=== PATIENT | male | born 1950 | race Caucasian/White ===

== ENCOUNTER 2020-09-08 09:19 | Inpatient (IN) | payer BC ==
--- NOTE | 2020-09-08 09:46 | ED ---
General Adult HPI - General Chief complaint: Shortness of Breath Stated complaint: COVID+,Not feeling well Time Seen by Provider: 09/08/20 09:20 Source: EMS Mode of arrival: EMS Limitations: no limitations - History of Present Illness Initial comments: Dictation was produced using [employer] dictation software. please excuse any grammatical, word or spelling errors. This patient was cared for during a federal and state declared state of emergency secondary to Covid 19 Chief Complaint: 69-year-old male with: Presents to the emergency department from [facility] for the difficulty in breathing. History of Present Illness: This 69-year-old male he does not have a history of home O2, asthma or COPD. Patient was a resident at [facility] when he tested positive for rotavirus 5 days ago. He was transferred to [facility]. Patient was placed on oxygen for hypoxia while at [facility]. Yesterday he was noted to be short of breath. Patient did receive his coronavirus vaccines. States he feels achy. Does have mild fevers. Denies any chest pain or abdominal pain. He does feel mildly dyspneic. The ROS documented in this emergency department record has been reviewed and confirmed by me. Those systems with pertinent positive or negative responses have been documented in the HPI. All other systems are other negative and/or noncontributory. PHYSICAL EXAM: General Impression: Alert and oriented x3, not in acute distress HEENT: Normocephalic atraumatic, extra-ocular movements intact, pupils equal and reactive to light bilaterally, mucous membranes moist. Cardiovascular: Heart regular rate and rhythm Chest: Able to complete full sentences, no retractions, no tachypnea Abdomen: abdomen soft, non-tender, non-distended, no organomegaly Musculoskeletal: Pulses present and equal in all extremities, no peripheral edema Motor: no focal deficits noted Neurological: CN II-XII grossly intact, no focal motor or sensory deficits noted Skin: Intact with no visualized rashes Psych: Normal affect and mood ED course: 69-year-old male presents with Covid and shortness of breath. All signs upon arrival shows 94% on 4 L nasal cannula, rest of vital signs within acceptable limits. Laboratory evaluation obtained. CBC remarkable. Coag panel is negative. D- dimer is elevated 1.14. Metabolic panel shows findings within acceptable limits. Chest x-ray shows findings to suggest COVID-19. D-dimer was elevated triggered CT of the chest. CT of the chest showed no pulmonary embolus. Patient is on minimal supplemental oxygen is given Decadron. Patient will be admitted with consultation to pulmonology. EKG interpretation: Ventricular rate 60, sinus rhythm,. Interval to 2, QRS 94, QTC 427. No CO prolongation, no QTC prolongation, no ST or T-wave changes noted. . Overall, this EKG is nonspecific - Related Data Home Medications Medication Instructions Recorded Confirmed Acetaminophen Tab [Tylenol] 650 mg PO Q4H PRN 09/08/20 09/08/20 Albuterol Sulfate [Proventil Hfa] 2 puff INHALATION RT-QID 09/08/20 09/08/20 Allopurinol [Zyloprim] 300 mg PO HS@209909/08/20 09/08/20 Citalopram Hydrobromide [CeleXA] 20 mg PO DAILY@0909/08/20 09/08/20 Cyclobenzaprine [Flexeril] 5 mg PO Q6H PRN 09/08/20 09/08/20 Doxazosin [Cardura] 4 mg PO BID@0900,1700 09/08/20 09/08/20 Furosemide [Lasix] 10 mg PO DAILY@0909/08/20 09/08/20 Gabapentin [Neurontin] 300 mg PO TID@0900,1300,209909/08/20 09/08/20 HYDROcodone/APAP 10-325MG [[place] 1 tab PO Q4H PRN 09/08/20 09/08/20 10-325] Insulin Glargine,Hum.rec.anlog 10 units SQ DAILY@0900 09/08/20 09/08/20 [Semglee Pen] Insulin Lispro [humaLOG Kwikpen] See Protocol SQ ACHS 09/08/20 09/08/20 Losartan [Cozaar] 50 mg PO DAILY@0909/08/20 09/08/20 Metoprolol Tartrate [Lopressor] 50 mg PO HS@209909/08/20 09/08/20 Sodium Chloride [Saline Nasal 1 spray EA NOSTRIL BID@0900,209909/08/20 09/08/20 [place]] Zolpidem [Ambien] 10 mg PO HS PRN 09/08/20 09/08/20 amLODIPine [Norvasc] 10 mg PO HS 09/08/20 09/08/20 metFORMIN HCL [Glucophage] 1,000 mg PO BID@0900,1700 09/08/20 09/08/20 Allergies Allergy/AdvReac Type Severity Reaction Status Date / Time adhesive Allergy Unknown Verified 09/08/20 09:30 cephalexin [From Keflex] Allergy Unknown Verified 09/08/20 09:30 lemon Allergy Unknown Verified 09/08/20 09:30 Review of Systems ROS Statement: Those systems with pertinent positive or pertinent negative responses have been documented in the HPI. ROS Other: All systems not noted in ROS Statement are negative. Past Medical History Past Medical History: Unable to Obtain History of Any Multi-Drug Resistant Organisms: None Reported Past Surgical History: Unable to Obtain Past Psychological History: No Psychological Hx Reported Smoking Status: Never smoker Past Alcohol Use History: None Reported Past Drug Use History: None Reported General Exam Limitations: no limitations Course Vital Signs 09/08/20 09/08/20 09/08/20 09:23 09:28 10:18 Temperature 98.3 F Pulse Rate 68 63 Respiratory 16 16 16 Rate Blood Pressure 129/80 124/69 O2 Sat by Pulse 94 L 89 L Oximetry 09/08/20 09/08/20 09/08/20 10:20 11:31 12:27 Temperature 98.6 F Pulse Rate 56 L 65 Respiratory 22 20 Rate Blood Pressure 127/67 O2 Sat by Pulse 92 L 95 93 L Oximetry Medical Decision Making - Lab Data Result diagrams: 09/08/20 09:45 09/08/20 09:45 Lab Results 09/08/20 09/08/20 09/08/20 Range/Units 09:45 09:45 09:45 WBC 4.7 (3.8-10.6) k/uL RBC 3.77 L (4.30-5.90) m/uL Hgb 10.8 L (13.0-17.5) gm/dL Hct 31.4 L (39.0-53.0) % MCV 83.2 (80.0-100.0) fL MCH 28.6 (25.0-35.0) pg MCHC 34.4 (31.0-37.0) g/dL RDW 15.1 (11.5-15.5) % Plt Count 238 (150-450) k/uL MPV 7.0 Neutrophils % 54 % Lymphocytes % 29 % Monocytes % 9 % Eosinophils % 6 % Basophils % 1 % Neutrophils # 2.5 (1.3-7.7) k/uL Lymphocytes # 1.3 (1.0-4.8) k/uL Monocytes # 0.4 (0-1.0) k/uL Eosinophils # 0.3 (0-0.7) k/uL Basophils # 0.0 (0-0.2) k/uL Poikilocytosis Slight PT 9.8 (9.0-12.0) sec INR 0.9 (<1.2) APTT 27.1 (22.0-30.0) sec D-Dimer 1.14 H (<0.60) mg/L FEU Sodium 137 (137-145) mmol/L Potassium 4.6 (3.5-5.1) mmol/L Chloride 104 (98-107) mmol/L Carbon Dioxide 23 (22-30) mmol/L Anion Gap 10 mmol/L BUN 31 H (9-20) mg/dL Creatinine 1.15 (0.66-1.25) mg/dL Est GFR (CKD-EPI)AfAm 76 (>60 ml/min/1.73 sqM) Est GFR (CKD-EPI)NonAf 66 (>60 ml/min/1.73 sqM) Glucose 138 H (74-99) mg/dL Calcium 8.9 (8.4-10.2) mg/dL Troponin I (0.000-0.034) ng/mL C-Reactive Protein 19.8 H (<1.0) mg/dL 09/08/20 Range/Units 09:45 WBC (3.8-10.6) k/uL RBC (4.30-5.90) m/uL Hgb (13.0-17.5) gm/dL Hct (39.0-53.0) % MCV (80.0-100.0) fL MCH (25.0-35.0) pg MCHC (31.0-37.0) g/dL RDW (11.5-15.5) % Plt Count (150-450) k/uL MPV Neutrophils % % Lymphocytes % % Monocytes % % Eosinophils % % Basophils % % Neutrophils # (1.3-7.7) k/uL Lymphocytes # (1.0-4.8) k/uL Monocytes # (0-1.0) k/uL Eosinophils # (0-0.7) k/uL Basophils # (0-0.2) k/uL Poikilocytosis PT (9.0-12.0) sec INR (<1.2) APTT (22.0-30.0) sec D-Dimer (<0.60) mg/L FEU Sodium (137-145) mmol/L Potassium (3.5-5.1) mmol/L Chloride (98-107) mmol/L Carbon Dioxide (22-30) mmol/L Anion Gap mmol/L BUN (9-20) mg/dL Creatinine (0.66-1.25) mg/dL Est GFR (CKD-EPI)AfAm (>60 ml/min/1.73 sqM) Est GFR (CKD-EPI)NonAf (>60 ml/min/1.73 sqM) Glucose (74-99) mg/dL Calcium (8.4-10.2) mg/dL Troponin I <0.012 (0.000-0.034) ng/mL C-Reactive Protein (<1.0) mg/dL Disposition Clinical Impression: COVID-19 Disposition: ADMITTED IP TO THIS HOSP Condition: Fair Referrals: Linda Dave MD [Primary Care Provider] - 1-2 days
[2020-09-08 10:10] LABS: Basophils % (A) 1 %; Eosinophils # (A) 0.3 k/uL (0-0.7); Eosinophils % (A) 6 %; HCT 31.4 % (39.0-53.0); HGB 10.8 gm/dL (13.0-17.5); Lymphocytes # (A) 1.3 k/uL (1.0-4.8); Lymphocytes % (A) 29 %; MCH 28.6 pg (25.0-35.0); MCHC 34.4 g/dL (31.0-37.0); MCV 83.2 fL (80.0-100.0); Monocytes # (A) 0.4 k/uL (0-1.0); Monocytes % (A) 9 %; Neutrophils # (A) 2.5 k/uL (1.3-7.7); Neutrophils % (A) 54 %; Platelet Count 238 k/uL (150-450); Poikilocytosis Slight; RBC 3.77 m/uL (4.30-5.90); RDW 15.1 % (11.5-15.5); WBC 4.7 k/uL (3.8-10.6)
[2020-09-08 10:27] LABS: INR 0.9 (<1.2); Partial Thromboplastin Time 27.1 sec (22.0-30.0); Prothrombin Time 9.8 sec (9.0-12.0)
[2020-09-08 10:29] LABS: Calcium 8.9 mg/dL (8.4-10.2); Potassium 4.6 mmol/L (3.5-5.1)
[2020-09-08 10:44] LABS: C Reactive Protein 19.8 mg/dL (<1.0)
--- NOTE | 2020-09-08 10:46 | XR ---
EXAMINATION TYPE: XR chest 1V portable DATE OF EXAM: 09/08/2020 COMPARISON: NONE HISTORY: Covid TECHNIQUE: Single frontal view of the chest is obtained. FINDINGS: There is bilateral airspace disease. No pneumothorax or pleural effusion. Cardiac mediasti nal silhouette is within normal limits. Overlying leads. IMPRESSION: Findings consistent with Covid pneumonia.
[2020-09-08 10:51] LABS: D-Dimer 1.14 mg/L FEU (<0.60)
[2020-09-08] MEDS ORDERED: DEXAMETHASONE SOD PHOSPHATE 10 MG/ML 1 ML VIAL IV STA (12:24)
--- NOTE | 2020-09-08 12:35 | CT ---
EXAMINATION TYPE: CT angio chest DATE OF EXAM: 09/08/2020 12:29 PM COMPARISON: Same day chest x-ray. HISTORY: Covid, Elev. D dimer, hemoptysis. CT DLP: 917.6 mGycm Automated exposure control for dose reduction was used. CONTRAST: CTA scan of the thorax is performed with IV Contrast, patient injected with 100 mL of Isovue 370, pul monary embolism protocol. MIP images are created and reviewed. FINDINGS: LUNGS: Bilateral multifocal groundglass opacities with areas of organizing consolidation are present. Small bilateral pleural effusions. No pneumothorax seen bilaterally. MEDIASTINUM: There is suboptimal bolus with most dense contrast in SVC. No thoracic aortic aneurysm or dissection is present. There is no convincing CT evidence for acute pulmonary embolism. There are scattered prominent and some enlarged mediastinal and bilateral hilar lymph nodes. No cardiomegaly or pericardial effusion is seen. OTHER: Mild multilevel spurring in thoracic spine. IMPRESSION: No CT evidence for acute pulmonary embolism. Bilateral multifocal groundglass opacities a nd organizing consolidation with thoracic adenopathy consistent with covid-19 infection.
[2020-09-08] MEDS ORDERED: ACETAMINOPHEN TAB 325 MG TAB PO PRN ×2 (12:41→20:29)
[2020-09-08] MEDS ORDERED: NALOXONE 0.4 MG/ML 1 ML VIAL IV PRN (12:41)
[2020-09-08] MEDS: SODIUM CHLORIDE 0.9% 1,000 ML IV SCH (12:59)
[2020-09-08] MEDS ORDERED: AZITHROMYCIN 500 MG in SODIUM CHLORIDE 0.9% 250 ML IVPB STA (13:17)
[2020-09-08 16:50] LABS: Glucose,Whole Blood 190 mg/dL (75-99)
[2020-09-08 20:35] LABS: Glucose,Whole Blood 252 mg/dL (75-99)
[2020-09-08] MEDS: INSULIN ASPART (NovoLOG) 100 UNIT/ML VIAL SQ SCH (21:57)
[2020-09-08] MEDS: METOPROLOL TARTRATE 50 MG TAB PO SCH (21:58)
[2020-09-08] MEDS: HYDROcodone/APAP 10-325MG 1 EACH TAB PO PRN (21:58)
[2020-09-08] MEDS: DEXAMETHASONE SOD PHOSPHATE 10 MG/ML 1 ML VIAL IV SCH (21:58)
[2020-09-08] MEDS: amLODIPine 10 MG TAB PO SCH (21:59)
[2020-09-08] MEDS: allopurinoL 300 MG TAB PO SCH (21:59)
[2020-09-08] MEDS: GABAPENTIN 300 MG CAP PO SCH (21:59)
[2020-09-08] MEDS: ZOLPIDEM 10 MG TAB PO PRN (21:59)
[2020-09-09] MEDS: HYDROcodone/APAP 10-325MG 1 EACH TAB PO PRN ×4 (05:21→22:34)
[2020-09-09 06:57] LABS: Glucose,Whole Blood 223 mg/dL (75-99)
[2020-09-09] MEDS: CITALOPRAM HYDROBROMIDE 20 MG TAB PO SCH (08:10)
[2020-09-09] MEDS: GABAPENTIN 300 MG CAP PO SCH ×3 (08:10→20:29)
[2020-09-09] MEDS: DEXAMETHASONE SOD PHOSPHATE 10 MG/ML 1 ML VIAL IV SCH ×2 (08:10→08:16)
[2020-09-09] MEDS: DOXAZOSIN 4 MG TAB PO SCH ×2 (08:10→19:12)
[2020-09-09] MEDS: LOSARTAN 50 MG TAB PO SCH (08:10)
[2020-09-09] MEDS: INSULIN ASPART (NovoLOG) 100 UNIT/ML VIAL SQ SCH ×4 (08:17→20:56)
[2020-09-09] MEDS ORDERED: AZITHROMYCIN 500 MG TAB PO SCH (09:00)
[2020-09-09] MEDS: ALBUTEROL HFA INHALER INHALATION SCH ×4 (09:04→19:41)
[2020-09-09] MEDS ORDERED: REMDESIVIR 100 MG in SODIUM CHLORIDE 0.9% 250 ML IVPB SCH (10:00)
[2020-09-09] MEDS: FUROSEMIDE 10 MG TAB PO SCH (10:17)
[2020-09-09] MEDS ORDERED: REMDESIVIR 200 MG in SODIUM CHLORIDE 0.9% 250 ML IVPB ONE (10:30)
[2020-09-09 11:01] LABS: HCT 32.1 % (39.6-50.0); HGB 10.3 g/dL (13.0-17.0); MCH 27.4 pg (27.0-32.0); MCHC 32.1 g/dL (32.0-37.0); MCV 85.4 fL (80.0-97.0); Mean Platelet Volume 9.3 fL (9.5-12.2); Platelet Count 296 X 10*3/uL (140-440); RBC 3.76 X 10*6/uL (4.40-5.60); RDW 14.5 % (11.5-14.5); WBC 4.14 X 10*3/uL (4.50-10.00)
[2020-09-09 11:36] LABS: Glucose,Whole Blood 231 mg/dL (75-99)
[2020-09-09 11:51] LABS: Basophils # (A) 0.01 X 10*3/uL (0.00-0.10); Basophils % (A) 0.2 %; Eosinophils # (A) 0.01 X 10*3/uL (0.04-0.35); Eosinophils % (A) 0.2 %; Lymphocytes # (A) 0.92 X 10*3/uL (0.90-5.00); Lymphocytes % (A) 22.2 %; Monocytes # (A) 0.28 X 10*3/uL (0.20-1.00); Monocytes % (A) 6.8 %; Neutrophils # (A) 2.77 X 10*3/uL (1.80-7.70)
[2020-09-09 11:55] LABS: African American GFR (CKD) 89.2 (60.0-200.0); Albumin 3.7 g/dL (3.80-4.90); Albumin/Globulin Ratio 1.54 (1.60-3.17); C Reactive Protein 10.8 mg/dL (0.0-0.8); Calcium 8.8 mg/dL (8.7-10.3); Globulin 2.4 g/dL (1.6-3.3); Potassium 4.9 mmol/L (3.5-5.5); Total Bilirubin 0.6 mg/dL (0.3-1.2); Total Protein 6.1 g/dL (6.2-8.2)
--- NOTE | 2020-09-09 12:10 | P.HPIM ---
History of Present Illness H&P Date: 09/09/20 Chief Complaint: Hemoptysis HISTORY OF PRESENT ILLNESS This is a 69-year-old male patient of Dr. Dave at [facility] with past medical history of asthma, diabetes mellitus type 2, diabetic neuropathy, hypertension, hyperlipidemia, chronic lumbar pain under the care of pain management in [facility]. Patient gives history that for 5-6 weeks he has had hemoptysis. He was previously at [facility] in [place]. Patient apparently developed symptoms of Covid and on September 01 was tested and came back positive. Patient states that all the residents became positive and the facility was shut down and he was transferred to [facility] for rehab. Patient complains of cough, no fever or chills. He states he had workup done at [facility] in [facility] on September 05 and at that time was also started on steroids for back pain. He has been spitting up blood since that time. He also has history of asthma. He denies use of home oxygen, nebulizers or CPAP. Patient presented to [facility] emergency center for evaluation and found to have pulse ox is 94% on 4 L nasal cannula, afebrile, heart rate 68, blood pressure 129/80. EKG sinus rhythm. WBC 4.7, hemoglobin 10.8, platelet count 238. Electrolytes were all normal, BUN 31 creatinine 1.15. Blood sugar 138. D-dimer 1.14. C-reactive protein 19.8. Troponin negative. Chest x-ray consistent with Covid [address] angiogram of the chest revealed no pulmonary embolism. Bilateral multifocal groundglass opacities and organizing consolidations with thoracic adenopathy consistent with Covid 19 infection. Patient was started on Decadron, and azithromycin and admitted to the Medr floor. Consult in place with pulmonary medicine. We have ordered Remdesivir. REVIEW OF SYSTEMS Constitutional: Denies fever, no chills, no night sweats. No weight change. No weakness, fatigue or lethargy. No daytime sleepiness. EENT: No headache. No blurred vision or double vision, no loss of vision. No loss of Hearing, no ringing in the ears, no dizziness. No nasal drainage or congestion. No epistaxis. No sore throat. Lungs: Reports shortness of breath, reports cough, reports sputum production. No wheezing. Reports hemoptysis. Cardiovascular: No chest pain, no lower extremity edema. No palpitations. No paroxysmal nocturnal dyspnea. No orthopnea. No lightheadedness or dizziness. No syncopal episodes. Abdominal: No abdominal pain. No nausea, vomiting. No diarrhea. No constipation. No bloody or tarry stools.. No loss of appetite. Genitourinary: No dysuria, increased frequency, urgency. No urinary retention. Musculoskeletal: No myalgias. No muscle weakness, no gait dysfunction, no frequent falls. No back pain. No neck pain. Integumentary: No wounds, no lesions. No rash or pruritus. No unusual bruising. No change in hair or nails. Neurologic: No aphasia. No facial droop. No change in mentation. No head injury. No headache. No paralysis. No paresthesia. Psychiatric: No depression. No anxiety. No mood swings. Endocrine: No abnormal blood sugars. No weight change. No excessive sweating or thirst. No cold intolerance. SOCIAL HISTORY Mild intermittent asthma, diabetes mellitus type 2, diabetic neuropathy, hypertension, hyperlipidemia, chronic lumbar pain under the care of pain management in [place], recurrent depression. No history of stroke, peptic ulcer disease, blood clots. Patient does not have home oxygen, nebulizer, CPAP. FAMILY HISTORY Mother is alive with history of hypertension and recently transitioned to hospice care. Father is alive with history of bipolar disorder and diabetes. Patient has 2 sisters and one has history of diabetes and one has history of bipolar disorder. Patient does not have any brothers and does not have any children.. PHYSICAL EXAMINATION Gen: This is a 69-year-old male. He is resting in recliner and appears to be comfortable and in no acute distress. HEENT: Head is atraumatic, normocephalic. Pupils equal, round. Sclerae is anicteric. NECK: Supple. No JVD. No lymphadenopathy. No thyromegaly. LUNGS: Diminished and crackles bilaterally. No intercostal retractions. No accessory muscle usage. Positive hemoptysis. HEART: Regular rate and rhythm. No murmur. ABDOMEN: Soft. Bowel sounds are present. No masses. No tenderness. EXTREMITIES: No pedal edema. No calf tenderness. Dorsalis pedis +2 bilaterally. NEUROLOGICAL: Patient is awake, alert and oriented x3. Cranial nerves 2 through 12 are grossly intact. ASSESSMENT AND PLAN 1. Acute hypoxic respiratory failure secondary to Covid 19 pneumonia. Patient started on Remdesivir, Decadron 6 mg IV twice daily, Ventolin inhaler 4 times daily, Zithromax 500 mg daily, vitamin supplements, oxygen therapy, consult with pulmonary medicine. 2. Hemoptysis since July. CAT scan as above. Pulmonary consult. 3. Mild intermittent asthma, stable. Continue Ventolin inhaler as needed. 4. Diabetes mellitus type 2. Hold metformin due to CAT scan. Continue NovoLog scale before meals and at bedtime, continue long-acting insulin 10 units daily. 5. Diabetic neuropathy. Continue gabapentin 300 mg 3 times daily. 6. Hypertension. Continue amlodipine 10 mg at bedtime, Lasix 10 mg daily, Cozaar 50 mg daily, Lopressor 50 mg at bedtime. 6. Hyperlipidemia. 7. Chronic lumbar pain under the care of pain management in [place]. Continue Flexeril 5 mg every 6 hours as needed, Neurontin, [place] 10 one every 4 hours as needed. 8. Chronic gout. Continue allopurinol 300 mg at bedtime. 9. Recurrent depression. Continue Celexa 20 mg daily. 10. Benign prostatic hypertrophy. Continue Cardura 4 mg twice daily. 11. GI prophylaxis. Protonix oral daily. 12. DVT prophylaxis. Heparin subcu. Patient will be admitted to the hospital for a minimum of 2 night stay. DISCHARGE PLAN Return to [facility] under the care of Dr. Dave. Impression and plan of care have been directed as dictated by the signing physician. Yumiko Morley nurse practitioner acting as scribe for signing physician. Past Medical History Past Medical History: Asthma, Diabetes Mellitus, Hypertension, Syncope Additional Past Medical History / Comment(s): IDDM type II, neuropathy bilateral legs/feet, acute renal failure, insomnia, muscle weakness/atrophy, chronic low back pain which radiates into R leg, DDD, bronchitis, recently has been wearing oxygen, lower leg/pedal edema, cellulitis bilateral lower legs/back. History of Any Multi-Drug Resistant Organisms: None Reported Past Surgical History: Tonsillectomy Additional Past Surgical History / Comment(s): Surgery to remove hematoma L leg from injury. Past Anesthesia/Blood Transfusion Reactions: No Reported Reaction Additional Past Anesthesia/Blood Transfusion Reaction / Comment(s): Pt has clausterphobia. Past Psychological History: Anxiety, Depression Additional Psychological History / Comment(s): Pt currently at [facility] for rehab. Smoking Status: Never smoker Past Alcohol Use History: None Reported Past Drug Use History: None Reported - Past Family History Father Family Medical History: Diabetes Mellitus, Hypertension Additional Family Medical History / Comment(s): Bipolar, gout Mother Additional Family Medical History / Comment(s): Mother is 91 yrs old and just entered into hospice. Medications and Allergies Home Medications Medication Instructions Recorded Confirmed Type Acetaminophen Tab [Tylenol] 650 mg PO Q4H PRN 09/08/20 09/08/20 History Albuterol Sulfate [Proventil Hfa] 2 puff INHALATION RT-QID 09/08/20 09/08/20 History Allopurinol [Zyloprim] 300 mg PO HS@209909/08/20 09/08/20 History Citalopram Hydrobromide [CeleXA] 20 mg PO DAILY@0900 09/08/20 09/08/20 History Cyclobenzaprine [Flexeril] 5 mg PO Q6H PRN 09/08/20 09/08/20 History Doxazosin [Cardura] 4 mg PO BID@0900,1700 09/08/20 09/08/20 History Furosemide [Lasix] 10 mg PO DAILY@0909/08/20 09/08/20 History Gabapentin [Neurontin] 300 mg PO TID@0900,1300,209909/08/20 09/08/20 History HYDROcodone/APAP 10-325MG [[place] 1 tab PO Q4H PRN 09/08/20 09/08/20 History 10-325] Insulin Glargine,Hum.rec.anlog 10 units SQ DAILY@0900 09/08/20 09/08/20 History [Semglee Pen] Insulin Lispro [humaLOG Kwikpen] See Protocol SQ ACHS 09/08/20 09/08/20 History Losartan [Cozaar] 50 mg PO DAILY@0900 09/08/20 09/08/20 History Metoprolol Tartrate [Lopressor] 50 mg PO HS@209909/08/20 09/08/20 History Sodium Chloride [Saline Nasal 1 spray EA NOSTRIL BID@0900,209909/08/20 09/08/20 History [place]] Zolpidem [Ambien] 10 mg PO HS PRN 09/08/20 09/08/20 History amLODIPine [Norvasc] 10 mg PO HS 09/08/20 09/08/20 History metFORMIN HCL [Glucophage] 1,000 mg PO BID@0900,1700 09/08/20 09/08/20 History Allergies Allergy/AdvReac Type Severity Reaction Status Date / Time adhesive Allergy Unknown Verified 09/08/20 09:30 cephalexin [From Keflex] Allergy Unknown Verified 09/08/20 09:30 lemon Allergy Unknown Verified 09/08/20 09:30 Physical Exam Vitals: Vital Signs Temp Pulse Pulse Resp BP BP Pulse Ox 09/09/20 05:18 98.0 F 69 15 169/91 92 L 09/09/20 02:05 97.5 F L 60 15 155/89 94 L 09/08/20 21:52 98.6 F 76 15 177/94 90 L 09/08/20 20:00 60 16 09/08/20 17:32 98.4 F 63 18 178/90 90 L 09/08/20 16:12 98.7 F 70 18 168/90 92 L 09/08/20 15:09 64 22 146/81 96 09/08/20 14:40 70 20 142/80 94 L 09/08/20 13:53 98.8 F 59 L 22 143/76 97 09/08/20 13:42 62 22 140/75 94 L 09/08/20 12:27 65 20 93 L 09/08/20 11:31 98.6 F 56 L 22 127/67 95 09/08/20 10:20 92 L 09/08/20 10:18 63 16 124/69 89 L Intake and Output 09/08/20 09/09/20 09/09/20 22:59 06:59 14:59 Output Total 1000 Balance -1000 Output: Urine 1000 Other: Voiding Method Toilet # Voids 1 # Bowel Movements 1 Results CBC & Chem 7: 09/09/20 07:38 09/08/20 09:45 Labs: Abnormal Lab Results - Last 24 Hours (Table) 09/08/20 09/08/20 09/08/20 Range/Units 09:45 09:45 09:45 RBC 3.77 L (4.30-5.90) m/uL Hgb 10.8 L (13.0-17.5) gm/dL Hct 31.4 L (39.0-53.0) % D-Dimer 1.14 H (<0.60) mg/L FEU BUN 31 H (9-20) mg/dL Glucose 138 H (74-99) mg/dL POC Glucose (mg/dL) (75-99) mg/dL C-Reactive Protein 19.8 H (<1.0) mg/dL 09/08/20 09/08/20 09/09/20 Range/Units 16:48 20:33 06:56 RBC (4.30-5.90) m/uL Hgb (13.0-17.5) gm/dL Hct (39.0-53.0) % D-Dimer (<0.60) mg/L FEU BUN (9-20) mg/dL Glucose (74-99) mg/dL POC Glucose (mg/dL) 190 H 252 H 223 H (75-99) mg/dL C-Reactive Protein (<1.0) mg/dL Thrombosis Risk Factor Assmnt - Choose All That Apply Any of the Below Risk Factors Present?: Yes Each Factor Represents 1 point: Obesity (BMI >25), Serious lung disease incl. pneumonia (< 1month), Swollen legs (current) Other Risk Factors: Yes Each Risk Factor Represents 2 Points: Age 61-74 years Other congenital or acquired thrombophilia - If yes, enter type in comment: No Thrombosis Risk Factor Assessment Total Risk Factor Score: 5 Thrombosis Risk Factor Assessment Level: High Risk
[2020-09-09 12:26] LABS: Ferritin 722.9 ng/mL (22.0-322.0)
[2020-09-09] MEDS: HEPARIN SODIUM,PORCINE/PF 5,000 UNIT/0.5 ML SYRINGE SQ SCH ×2 (13:16→23:18)
[2020-09-09] MEDS: SODIUM CHLORIDE 0.9% 1,000 ML IV SCH (13:16)
[2020-09-09 14:53] LABS: Erythrocyte Sedimentation Rate >140 mm/Hr (0-20)
[2020-09-09 17:11] LABS: Glucose,Whole Blood 307 mg/dL (75-99)
--- NOTE | 2020-09-09 17:54 | P.CNPUL ---
History of Present Illness Consult date: 09/09/20 Reason for consult: dyspnea, cough, hypoxemia (Hemoptysis and coronary 19 pneumonia), pneumonia, other Chief complaint: Hemoptysis and COVID-19 pneumonia History of present illness: Patient is a 69-year-old male resident of [facility] care facility due to her chronic back problem was undergoing short-term rehab patient came back positive for Crohn a virus 5 days ago, developed shortness of breath requiring supplemental oxygen came into the hospital for further evaluation and treatment, patient did receive both doses of vaccine back in May and June, patient has been having hemoptysis for last 4 weeks off and on on arrival oxygen saturation was noted to be 89%, BUN/creatinine is 31 and 1.15, Patient apparently developed symptoms of Covid and on September 01 was tested and came back positive. Patient states that all the residents became positive and the facility was shut down and he was transferred to [facility] for rehab. Patient complains of cough, no fever or chills. He states he had workup done at [facility] in [facility] on September 05 and at that time was also started on steroids for back pain. He has been spitting up blood since that time. He also has history of asthma. He denies use of home oxygen, nebulizers or CPAP. Patient presented to [facility] emergency center for evaluation and found to have pulse ox is 94% on 4 L nasal cannula, afebrile, heart rate 68, blood pressure 129/80. EKG sinus rhythm. WBC 4.7, hemoglobin 10.8, platelet count 238. Electrolytes were all normal, BUN 31 creatinine 1.15. Blood sugar 138. D-dimer 1.14. C-reactive protein 19.8. Troponin negative. Chest x-ray consistent with Covid [address] angiogram of the chest revealed no pulm onary embolism. Bilateral multifocal groundglass opacities and organizing consolidations with thoracic adenopathy consistent with Covid 19 infection. Patient was started on Decadron, and azithromycin and Remdesivir. Patient chest x-ray revealed bilateral interstitial infiltrate consistent with COVID-19 pneumonia, computed tomography scan of the chest confirmed above finding however no central prominent pulmonary embolism noted Review of the data revealed that patient has prior medical history of chronic persistent asthma, diabetes mellitus type 2, diabetic neuropathy hypertension hypertensive cardiovascular disease chronic lumbar pain, Review of Systems All systems: negative Past Medical History Past Medical History: Asthma, Diabetes Mellitus, Hypertension, Syncope Additional Past Medical History / Comment(s): IDDM type II, neuropathy bilateral legs/feet, acute renal failure, insomnia, muscle weakness/atrophy, chronic low back pain which radiates into R leg, DDD, bronchitis, recently has been wearing oxygen, lower leg/pedal edema, cellulitis bilateral lower legs/back. History of Any Multi-Drug Resistant Organisms: None Reported Past Surgical History: Tonsillectomy Additional Past Surgical History / Comment(s): Surgery to remove hematoma L leg from injury. Past Anesthesia/Blood Transfusion Reactions: No Reported Reaction Additional Past Anesthesia/Blood Transfusion Reaction / Comment(s): Pt has clausterphobia. Past Psychological History: Anxiety, Depression Additional Psychological History / Comment(s): Pt currently at [facility] for rehab. Smoking Status: Never smoker Past Alcohol Use History: None Reported Past Drug Use History: None Reported - Past Family History Father Family Medical History: Diabetes Mellitus, Hypertension Additional Family Medical History / Comment(s): Bipolar, gout Mother Additional Family Medical History / Comment(s): Mother is 91 yrs old and just entered into hospice. Medications and Allergies Home Medications Medication Instructions Recorded Confirmed Type Acetaminophen Tab [Tylenol] 650 mg PO Q4H PRN 09/08/20 09/08/20 History Albuterol Sulfate [Proventil Hfa] 2 puff INHALATION RT-QID 09/08/20 09/08/20 History Allopurinol [Zyloprim] 300 mg PO HS@2100 09/08/20 09/08/20 History Citalopram Hydrobromide [CeleXA] 20 mg PO DAILY@0900 09/08/20 09/08/20 History Cyclobenzaprine [Flexeril] 5 mg PO Q6H PRN 09/08/20 09/08/20 History Doxazosin [Cardura] 4 mg PO BID@0900,1700 09/08/20 09/08/20 History Furosemide [Lasix] 10 mg PO DAILY@0900 09/08/20 09/08/20 History Gabapentin [Neurontin] 300 mg PO TID@0900,1300,2100 09/08/20 09/08/20 History HYDROcodone/APAP 10-325MG [[place] 1 tab PO Q4H PRN 09/08/20 09/08/20 History 10-325] Insulin Glargine,Hum.rec.anlog 10 units SQ DAILY@0900 09/08/20 09/08/20 History [Semglee Pen] Insulin Lispro [humaLOG Kwikpen] See Protocol SQ ACHS 09/08/20 09/08/20 History Losartan [Cozaar] 50 mg PO DAILY@0900 09/08/20 09/08/20 History Metoprolol Tartrate [Lopressor] 50 mg PO HS@2100 09/08/20 09/08/20 History Sodium Chloride [Saline Nasal 1 spray EA NOSTRIL BID@0900,2100 09/08/20 09/08/20 History [place]] Zolpidem [Ambien] 10 mg PO HS PRN 09/08/20 09/08/20 History amLODIPine [Norvasc] 10 mg PO HS 09/08/20 09/08/20 History metFORMIN HCL [Glucophage] 1,000 mg PO BID@0900,1700 09/08/20 09/08/20 History Allergies Allergy/AdvReac Type Severity Reaction Status Date / Time adhesive Allergy Unknown Verified 09/08/20 09:30 cephalexin [From Keflex] Allergy Unknown Verified 09/08/20 09:30 lemon Allergy Unknown Verified 09/08/20 09:30 Physical Exam Vitals: Vital Signs Temp Pulse Resp BP Pulse Ox 09/09/20 15:01 98 F 79 16 164/85 94 L 09/09/20 09:59 97.4 F L 77 19 171/89 97 09/09/20 08:00 77 19 09/09/20 05:18 98.0 F 69 15 169/91 92 L 09/09/20 02:05 97.5 F L 60 15 155/89 94 L 09/08/20 21:52 98.6 F 76 15 177/94 90 L 09/08/20 20:00 60 16 Intake and Output 09/09/20 09/09/20 09/09/20 06:59 14:59 22:59 Output Total 1000 Balance -1000 Output: Urine 1000 Other: Voiding Method Toilet - Constitutional General appearance: cooperative, disheveled, morbidly obese - EENT Eyes: EOMI, PERRLA Ears: bilateral: normal - Neck Carotids: bilateral: upstroke normal Thyroid: bilateral: normal size - Respiratory Respiratory: bilateral: diminished, rhonchi - Cardiovascular Rhythm: regular Heart sounds: normal: S1, S2 - Gastrointestinal General gastrointestinal: distended, soft - Integumentary Integumentary: normal turgor - Neurologic Neurologic: CNII-XII intact - Musculoskeletal Musculoskeletal: gait normal, generalized weakness, strength equal bilaterally - Psychiatric Psychiatric: A&O x's 3, appropriate affect, intact judgment & insight Results - Laboratory Findings CBC and BMP: 09/09/20 07:38 09/09/20 07:38 PT/INR, D-dimer PT 9.8 sec (9.0-12.0) 09/08/20 09:45 INR 0.9 (<1.2) 09/08/20 09:45 D-Dimer 1.14 mg/L FEU (<0.60) H 09/08/20 09:45 Abnormal lab findings: Abnormal Labs 09/08/20 09/08/20 09/08/20 09:45 09:45 09:45 WBC RBC 3.77 L Hgb 10.8 L Hct 31.4 L MPV Immature Gran # Eosinophils # ESR D-Dimer 1.14 H Carbon Dioxide BUN 31 H BUN/Creatinine Ratio Glucose 138 H POC Glucose (mg/dL) Ferritin C-Reactive Protein 19.8 H Total Protein Albumin Albumin/Globulin Ratio Procalcitonin 09/08/20 09/08/20 09/09/20 16:48 20:33 06:56 WBC RBC Hgb Hct MPV Immature Gran # Eosinophils # ESR D-Dimer Carbon Dioxide BUN BUN/Creatinine Ratio Glucose POC Glucose (mg/dL) 190 H 252 H 223 H Ferritin C-Reactive Protein Total Protein Albumin Albumin/Globulin Ratio Procalcitonin 09/09/20 09/09/20 09/09/20 07:38 07:38 07:38 WBC 4.14 L RBC 3.76 L Hgb 10.3 L Hct 32.1 L MPV 9.3 L Immature Gran # 0.15 H Eosinophils # 0.01 L ESR >140 H D-Dimer Carbon Dioxide 21.0 L BUN 28.0 H BUN/Creatinine Ratio 28.00 H Glucose 242 H POC Glucose (mg/dL) Ferritin 722.9 H C-Reactive Protein 10.8 H Total Protein 6.1 L Albumin 3.70 L Albumin/Globulin Ratio 1.54 L Procalcitonin 0.12 H 09/09/20 09/09/20 11:35 17:09 WBC RBC Hgb Hct MPV Immature Gran # Eosinophils # ESR D-Dimer Carbon Dioxide BUN BUN/Creatinine Ratio Glucose POC Glucose (mg/dL) 231 H 307 H Ferritin C-Reactive Protein Total Protein Albumin Albumin/Globulin Ratio Procalcitonin - Diagnostic Findings Chest x-ray: report reviewed, image reviewed CT scan - chest: report reviewed, image reviewed Assessment and Plan Assessment: Hemoptysis ongoing chronic for last 4 weeks evaluated for secondary bacterial pneumonia Covid 19 pneumonia Acute hypoxic respirator failure Plan: Continue IV Decadron along with IV REMdesivir Hold subcu heparin for now, monitor and observe hemoptysis off of heparin for next 24 hours Evaluated for bacterial pneumonia, pro-calcitonin is elevated we'll send sputum for Gram stain and culture Further plan of care as per clinical response of the patient will follow closely, Time with Patient: Greater than 30
[2020-09-09 18:17] LABS: Albumin 3.8 g/dL (3.80-4.90); Albumin/Globulin Ratio 1.46 (1.60-3.17); Bilirubin, Conjugated 0.2 mg/dL (0.20-0.40); Bilirubin,Unconjugated 0.4 mg/dL; Globulin 2.6 g/dL (1.6-3.3); Total Bilirubin 0.6 mg/dL (0.3-1.2); Total Protein 6.4 g/dL (6.2-8.2)
[2020-09-09] MEDS: amLODIPine 10 MG TAB PO SCH (20:29)
[2020-09-09] MEDS: METOPROLOL TARTRATE 50 MG TAB PO SCH (20:29)
[2020-09-09] MEDS: allopurinoL 300 MG TAB PO SCH (20:29)
[2020-09-09 20:44] LABS: Glucose,Whole Blood 368 mg/dL (75-99)
[2020-09-09] MEDS ORDERED: INSULIN ASPART (NovoLOG) 100 UNIT/ML VIAL SQ ONE ×2 (20:53→23:30)
[2020-09-09] MEDS: ZOLPIDEM 10 MG TAB PO PRN (22:35)
[2020-09-09 23:09] LABS: Glucose,Whole Blood 272 mg/dL (75-99)
[2020-09-10] MEDS: HYDROcodone/APAP 10-325MG 1 EACH TAB PO PRN ×5 (03:38→23:30)
--- NOTE | 2020-09-10 06:25 | CONS ---
CONSULTATION DATE OF SERVICE: 09/09/2020 REASON FOR CONSULTATION: COVID-19 pneumonia. HISTORY OF PRESENT ILLNESS: The patient is a 69-year-old male with past medical history significant for diabetes mellitus, diabetic neuropathy, hypertension, hyperlipidemia in this patient who recently has been undergoing rehab at [facility] . Apparently the patient got exposed and developed COVID-19 on September 01. The patient was transferred to [facility] on the [facility] for rehabilitation. The patient initially did okay. Was having some shortness of breath on exertion. However, the last few days the patient has been complaining of increased shortness of breath on minimal exertion, unable to catch his breath. The patient also have a cough productive of purulent sputum and he did have hemoptysis. Denies having any pleuritic chest pain. Some nausea but no vomiting. Decreased oral intake. No abdominal pain. Did have diarrhea which seemed to be chronic for him. With these symptoms, the patient was evaluated by the ER physician. On arrival to the ER, the patient has been afebrile and no fever has been recorded. Subsequently the patient did have sats of 89% on room air. He is currently 94% on 3 L nasal cannula. The patient did have a normal white count with lymphopenia. Creatinine was normal. Liver enzymes are normal. CRP was 10.8. Procalcitonin 0.12. The patient did have a chest x-ray with finding consistent with COVID-[address] Flores. The patient did have a CT angiogram of the chest that was negative for PE however did shows bilateral multifocal ground-glass opacities and colonizing consolidation with thoracic adenopathy consistent with COVID-19 infection. The patient has been admitted to the hospital. Infectious Disease was consulted for further management. REVIEW OF SYSTEMS: Positive points have been mentioned in HPI. Rest of systems are negative. PAST MEDICAL HISTORY: Diabetes mellitus type 2, diabetic neuropathy, hypertension, hyperlipidemia, chronic back pain, depression. SOCIAL HISTORY: Denies smoking, drinking or any drug use. FAMILY HISTORY: Mother with history of hypertension. Father with history of bipolar disorder and diabetes. ALLERGIES: CEPHALEXIN with rash. No history of anaphylaxis. MEDICATIONS: The patient is currently on Tylenol, [place], Ventolin, Zyloprim, Norvasc, vitamin C, Zithromax, Celexa, Flexeril, and Decadron, Cardura, Lasix, Neurontin, NovoLog, Levemir, Cozaar, Lopressor, Narcan, Protonix, remdesivir, zinc and Ambien. PHYSICAL EXAMINATION: VITAL SIGNS: Blood pressure is 146/77 with a pulse of 63, temperature 98.2. He is 93% on 3 L nasal cannula. GENERAL DESCRIPTION: Patient is an elderly male up in the chair in no distress. No tachypnea or accessory muscles of respiration use. HEENT: Examination shows pallor, no scleral icterus. Oral mucous membrane is dry. NECK: Trachea central, no thyromegaly. LUNGS: Unlabored breathing, coarse breath sounds bilaterally. No wheeze. HEART: S1-S2, regular rate and rhythm. ABDOMEN: Soft, no tenderness. No guarding or rigidity. EXTREMITIES: No edema of the feet. SKIN: No rash or mass palpable. NEUROLOGICAL: Patient is awake, alert, oriented times three. Mood and affect normal. LABS: Hemoglobin is 10.3, white count 4.14, BUN of 28, creatinine 1.0. Liver enzymes are normal. CRP is 10.8. Chest x-ray and CT report as mentioned above. DIAGNOSTIC IMPRESSION: Patient with admission to the hospital with increasing shortness of breath and cough in this patient who did have significant purulent secretion and did have some hemoptysis, which is atypical for a COVID-19 infection in this patient who does have COVID vaccination more than a month before his symptoms started. Both the CT and x-ray have been suggestive of a COVID-19 infection with no evidence of any secondary bacterial pneumonia. PLAN: 1. The patient to continue with remdesivir per protocol. 2. Dexamethasone, zinc, ascorbic acid. 3. We will check a SARS COVID2 antibody. 4. Check the sputum for culture. 5. We will follow on clinical condition and further adjust medication if needed. Thank you for this consultation. Will follow this patient along with you. MMODL / IJN: [id number] /
[2020-09-10 07:35] LABS: Glucose,Whole Blood 166 mg/dL (75-99)
[2020-09-10] MEDS: ALBUTEROL HFA INHALER INHALATION SCH ×4 (08:14→21:01)
[2020-09-10] MEDS: DOXAZOSIN 4 MG TAB PO SCH ×2 (08:26→18:22)
[2020-09-10] MEDS: DEXAMETHASONE SOD PHOSPHATE 10 MG/ML 1 ML VIAL IV SCH (08:26)
[2020-09-10] MEDS: PANTOPRAZOLE 40 MG TABLET PO SCH (08:26)
[2020-09-10] MEDS: LOSARTAN 50 MG TAB PO SCH (08:26)
[2020-09-10] MEDS: FUROSEMIDE 10 MG TAB PO SCH (08:26)
[2020-09-10] MEDS: ASCORBIC ACID 500 MG TAB PO SCH (08:26)
[2020-09-10] MEDS: INSULIN DETEMIR (LEVEMIR) 100 UNIT/ML SYR SQ SCH (08:27)
[2020-09-10] MEDS: HEPARIN SODIUM,PORCINE/PF 5,000 UNIT/0.5 ML SYRINGE SQ SCH ×2 (08:27→21:26)
[2020-09-10] MEDS: INSULIN ASPART (NovoLOG) 100 UNIT/ML VIAL SQ SCH ×4 (08:27→21:25)
[2020-09-10] MEDS: CHOLECALCIFEROL 25 MCG (1000 IU) TABLET PO SCH (08:27)
[2020-09-10] MEDS: ZINC SULFATE 220 MG CAP PO SCH (08:27)
[2020-09-10] MEDS: CITALOPRAM HYDROBROMIDE 20 MG TAB PO SCH (08:27)
[2020-09-10] MEDS: GABAPENTIN 300 MG CAP PO SCH ×3 (08:27→21:25)
[2020-09-10 09:21] LABS: HCT 30.4 % (39.6-50.0); MCH 27.9 pg (27.0-32.0); MCHC 32.9 g/dL (32.0-37.0); MCV 84.7 fL (80.0-97.0); Mean Platelet Volume 9.2 fL (9.5-12.2); Platelet Count 311 X 10*3/uL (140-440); RBC 3.59 X 10*6/uL (4.40-5.60); RDW 14.4 % (11.5-14.5); WBC 6.15 X 10*3/uL (4.50-10.00)
[2020-09-10 10:09] LABS: African American GFR (CKD) 89.2 (60.0-200.0); Albumin 3.7 g/dL (3.80-4.90); Albumin/Globulin Ratio 1.54 (1.60-3.17); Anion Gap 8.1 mmol/L (4.00-12.00); Calcium 8.8 mg/dL (8.7-10.3); Carbon Dioxide 25.9 mmol/L (21.6-31.8); Globulin 2.4 g/dL (1.6-3.3); Potassium 4.9 mmol/L (3.5-5.5); Total Bilirubin 0.5 mg/dL (0.3-1.2); Total Protein 6.1 g/dL (6.2-8.2)
[2020-09-10] MEDS: REMDESIVIR 100 MG in SODIUM CHLORIDE 0.9% 250 ML IVPB SCH (10:29)
[2020-09-10] MEDS: SODIUM CHLORIDE 0.9% 1,000 ML IV SCH (10:29)
[2020-09-10] MEDS: CYCLOBENZAPRINE 5 MG TAB PO PRN ×2 (10:29→21:25)
--- NOTE | 2020-09-10 11:00 | P.PN ---
Subjective Progress Note Date: 09/10/20 HISTORY OF PRESENT ILLNESS This is a 69-year-old male patient of Dr. Dave at [facility] with past medical history of asthma, diabetes mellitus type 2, diabetic neuropathy, hypertension, hyperlipidemia, chronic lumbar pain under the care of pain management in [facility]. Patient gives history that for 5-6 weeks he has had hemoptysis. He was previously at [facility] in [place]. Patient apparently developed symptoms of Covid and on September 01 was tested and came back positive. Patient states that all the residents became positive and the facility was shut down and he was transferred to [facility] for rehab. Patient complains of cough, no fever or chills. He states he had workup done at [facility] in [facility] on September 05 and at that time was also started on steroids for back pain. He has been spitting up blood since that time. He also has history of asthma. He denies use of home oxygen, nebulizers or CPAP. Patient presented to [facility] emergency center for evaluation and found to have pulse ox is 94% on 4 L nasal cannula, afebrile, heart rate 68, blood pressure 129/80. EKG sinus rhythm. WBC 4.7, hemoglobin 10.8, platelet count 238. Electrolytes were all normal, BUN 31 creatinine 1.15. Blood sugar 138. D-dimer 1.14. C-reactive protein 19.8. Troponin negative. Chest x-ray consistent with Covid [address] angiogram of the chest revealed no pulmonary embolism. Bilateral multifocal groundglass opacities and organizing consolidations with thoracic adenopathy consistent with Covid 19 infection. Patient was started on Decadron, and azithromycin and admitted to the [facility] floor. Consult in place with pulmonary medicine. We have ordered Remdesivir. 09/10: Patient's breathing status has been stable with pulse ox of 96% on 3 L nasal cannula. He has been afebrile, heart rate 63, blood pressure 118/71. Mike granda has been seen by Dr. Pierce. Heparin subcu is on hold due to hemoptysis. No worsening and hemoptysis today. Blood sugars are running between 166 and 368. Repeat blood work reveals WBC 6.1, hemoglobin 10, platelet count 311. Electrolytes normal. BUN 31 creatinine 1. Liver function tests are normal. Covid antibody total reactive. REVIEW OF SYSTEMS Constitutional: Denies fever, no chills, no night sweats. No weight change. No weakness, fatigue or lethargy. No daytime sleepiness. EENT: No headache. No blurred vision or double vision, no loss of vision. No loss of Hearing, no ringing in the ears, no dizziness. No nasal drainage or congestion. No epistaxis. No sore throat. Lungs: Reports shortness of breath, reports cough, reports sputum production. No wheezing. Reports hemoptysis. Cardiovascular: No chest pain, no lower extremity edema. No palpitations. No paroxysmal nocturnal dyspnea. No orthopnea. No lightheadedness or dizziness. No syncopal episodes. Abdominal: No abdominal pain. No nausea, vomiting. No diarrhea. No constipation. No bloody or tarry stools.. No loss of appetite. Genitourinary: No dysuria, increased frequency, urgency. No urinary retention. Musculoskeletal: No myalgias. No muscle weakness, no gait dysfunction, no frequent falls. No back pain. No neck pain. Integumentary: No wounds, no lesions. No rash or pruritus. No unusual bruising. No change in hair or nails. Neurologic: No aphasia. No facial droop. No change in mentation. No head injury. No headache. No paralysis. No paresthesia. Psychiatric: No depression. No anxiety. No mood swings. Endocrine: No abnormal blood sugars. No weight change. No excessive sweating or thirst. No cold intolerance. SOCIAL HISTORY Mild intermittent asthma, diabetes mellitus type 2, diabetic neuropathy, hypertension, hyperlipidemia, chronic lumbar pain under the care of pain management in [place], recurrent depression. No history of stroke, peptic ulcer disease, blood clots. Patient does not have home oxygen, nebulizer, CPAP. FAMILY HISTORY Mother is alive with history of hypertension and recently transitioned to hospice care. Father is alive with history of bipolar disorder and diabetes. Patient has 2 sisters and one has history of diabetes and one has history of bipolar disorder. Patient does not have any brothers and does not have any children.. PHYSICAL EXAMINATION Gen: This is a 69-year-old male. He is resting in recliner and appears to be comfortable and in no acute distress. HEENT: Head is atraumatic, normocephalic. Pupils equal, round. Sclerae is anicteric. NECK: Supple. No JVD. No lymphadenopathy. No thyromegaly. LUNGS: Diminished and crackles bilaterally. No intercostal retractions. No accessory muscle usage. Positive hemoptysis. HEART: Regular rate and rhythm. No murmur. ABDOMEN: Soft. Bowel sounds are present. No masses. No tenderness. EXTREMITIES: No pedal edema. No calf tenderness. Dorsalis pedis +2 bilaterally. NEUROLOGICAL: Patient is awake, alert and oriented x3. Cranial nerves 2 through 12 are grossly intact. ASSESSMENT AND PLAN 1. Acute on chronic hypoxic respiratory failure secondary to Covid 19 pneumonia. Patient started on Remdesivir, Decadron 6 mg IV twice daily, Ventolin inhaler 4 times daily, Zithromax 500 mg daily, vitamin supplements, oxygen therapy, consult with pulmonary medicine appreciated. 2. Hemoptysis since July. CAT scan as above. Pulmonary consult. 3. Mild intermittent asthma, stable. Continue Ventolin inhaler as needed. 4. Diabetes mellitus type 2. Hold metformin due to CAT scan. Continue NovoLog scale before meals and at bedtime, continue long-acting insulin 10 units daily. 5. Diabetic neuropathy. Continue gabapentin 300 mg 3 times daily. 6. Hypertension. Continue amlodipine 10 mg at bedtime, Lasix 10 mg daily, Cozaar 50 mg daily, Lopressor 50 mg at bedtime. 6. Hyperlipidemia. 7. Chronic lumbar pain under the care of pain management in [place]. Continue Flexeril 5 mg every 6 hours as needed, Neurontin, [place] 10 one every 4 hours as needed. 8. Chronic gout. Continue allopurinol 300 mg at bedtime. 9. Recurrent depression. Continue Celexa 20 mg daily. 10. Benign prostatic hypertrophy. Continue Cardura 4 mg twice daily. 11. GI prophylaxis. Protonix oral daily. 12. DVT prophylaxis. Heparin hold due to hemoptysis. SCDs and PATEL hargrove. DISCHARGE PLAN Return to [facility] under the care of Dr. Dave. Impression and plan of care have been directed as dictated by the signing physi janelle. Yumiko Morley nurse practitioner acting as scribe for signing physician. Objective - Vital Signs Vital signs: Vital Signs Temp 98.2 F 09/10/20 05:49 Pulse 63 09/10/20 08:00 Resp 21 09/10/20 08:00 BP 118/71 09/10/20 05:49 Pulse Ox 79 L 09/10/20 08:00 Intake & Output 09/09/20 09/10/20 09/10/20 18:59 06:59 18:59 Output Total 500 Balance -500 Output: Urine 500 Other: Voiding Method Toilet Toilet # Voids 3 # Bowel Movements 1 - Labs CBC & Chem 7: 09/10/20 06:06 09/10/20 06:06 Labs: Abnormal Lab Results - Last 24 Hours (Table) 09/09/20 09/09/20 09/09/20 Range/Units 07:38 07:38 07:38 WBC 4.14 L (4.50-10.00) X 10*3/uL RBC 3.76 L (4.40-5.60) X 10*6/uL Hgb 10.3 L (13.0-17.0) g/dL Hct 32.1 L (39.6-50.0) % MPV 9.3 L (9.5-12.2) fL Immature Gran # 0.15 H (0.00-0.04) X 10*3/uL Eosinophils # 0.01 L (0.04-0.35) X 10*3/uL ESR >140 H (0-20) mm/Hr Carbon Dioxide 21.0 L (21.6-31.8) mmol/L BUN 28.0 H (9.0-27.0) mg/dL BUN/Creatinine Ratio 28.00 H (12.00-20.00) Ratio Glucose 242 H (70-110) mg/dL POC Glucose (mg/dL) (75-99) mg/dL Ferritin 722.9 H (22.0-322.0) ng/mL C-Reactive Protein 10.8 H (0.0-0.8) mg/dL Total Protein 6.1 L (6.2-8.2) g/dL Albumin 3.70 L (3.80-4.90) g/dL Albumin/Globulin Ratio 1.54 L (1.60-3.17) g/dL Procalcitonin 0.12 H (0.02-0.09) ng/mL 09/09/20 09/09/20 09/09/20 Range/Units 07:38 11:35 17:09 WBC (4.50-10.00) X 10*3/uL RBC (4.40-5.60) X 10*6/uL Hgb (13.0-17.0) g/dL Hct (39.6-50.0) % MPV (9.5-12.2) fL Immature Gran # (0.00-0.04) X 10*3/uL Eosinophils # (0.04-0.35) X 10*3/uL ESR (0-20) mm/Hr Carbon Dioxide (21.6-31.8) mmol/L BUN (9.0-27.0) mg/dL BUN/Creatinine Ratio (12.00-20.00) Ratio Glucose (70-110) mg/dL POC Glucose (mg/dL) 231 H 307 H (75-99) mg/dL Ferritin (22.0-322.0) ng/mL C-Reactive Protein (0.0-0.8) mg/dL Total Protein (6.2-8.2) g/dL Albumin (3.80-4.90) g/dL Albumin/Globulin Ratio 1.46 L (1.60-3.17) g/dL Procalcitonin (0.02-0.09) ng/mL 09/09/20 09/09/20 09/10/20 Range/Units 20:42 23:07 07:34 WBC (4.50-10.00) X 10*3/uL RBC (4.40-5.60) X 10*6/uL Hgb (13.0-17.0) g/dL Hct (39.6-50.0) % MPV (9.5-12.2) fL Immature Gran # (0.00-0.04) X 10*3/uL Eosinophils # (0.04-0.35) X 10*3/uL ESR (0-20) mm/Hr Carbon Dioxide (21.6-31.8) mmol/L BUN (9.0-27.0) mg/dL BUN/Creatinine Ratio (12.00-20.00) Ratio Glucose (70-110) mg/dL POC Glucose (mg/dL) 368 H 272 H 166 H (75-99) mg/dL Ferritin (22.0-322.0) ng/mL C-Reactive Protein (0.0-0.8) mg/dL Total Protein (6.2-8.2) g/dL Albumin (3.80-4.90) g/dL Albumin/Globulin Ratio (1.60-3.17) g/dL Procalcitonin (0.02-0.09) ng/mL
[2020-09-10 11:07] LABS: Basophils # (A) 0.02 X 10*3/uL (0.00-0.10); Basophils % (A) 0.3 %; Eosinophils # (A) 0 X 10*3/uL (0.04-0.35); Eosinophils % (A) 0 %; Lymphocytes # (A) 1.07 X 10*3/uL (0.90-5.00); Lymphocytes % (A) 17.4 %; Monocytes # (A) 0.44 X 10*3/uL (0.20-1.00); Monocytes % (A) 7.2 %; Neutrophils # (A) 4.39 X 10*3/uL (1.80-7.70); Neutrophils % (A) 71.4 %
[2020-09-10 11:37] LABS: Glucose,Whole Blood 253 mg/dL (75-99)
--- NOTE | 2020-09-10 12:24 | P.PN ---
Subjective Progress Note Date: 09/10/20 Principal diagnosis: Hemoptysis ongoing chronic for last 4 weeks evaluated for secondary bacterial pneumonia Covid 19 pneumonia Acute hypoxic respirator failure Morbid obesity and sleep disorder breathing and sleep apnea Type 2 diabetes mellitus Diabetic neuropathy Hypertension hypertensive cardiovascular disease Chronic lumbar pain Chronic gout Depression BPH 09/10/2020, patient seen eval examined during the rounds labs reviewed medications reviewed, patient is doing slightly better breathing improved but however still have coughing with hemoptysis however its old blood with stable hemoglobin no overt hemoptysis however has been noted, sputum studies are being sent, on 3 L nasal cannula, oxygen saturation remained stable 96-97%, at times it does drop down 79%, will DC dexamethasone put patient on IV steroids, in addition we'll start IV Zosyn also pending sputum studies Patient is a 69-year-old male resident of [facility] due to her chronic back problem was undergoing short-term rehab patient came back positive for Crohn a virus 5 days ago, developed shortness of breath requiring supplemental oxygen came into the hospital for further evaluation and treatment, patient did receive both doses of vaccine back in May and June, patient has been having hemoptysis for last 4 weeks off and on on arrival oxygen saturation was noted to be 89%, BUN/creatinine is 31 and 1.15, Patient apparently developed symptoms of Covid and on September 01 was tested and came back positive. Patient states that all the residents became positive and the facil ity was shut down and he was transferred to [facility] for rehab. Patient complains of cough, no fever or chills. He states he had workup done at [facility] in [facility] on September 05 and at that time was also started on steroids for back pain. He has been spitting up blood since that time. He also has history of asthma. He denies use of home oxygen, nebulizers or CPAP. Patient presented to [facility] emergency center for evaluation and found to have pulse ox is 94% on 4 L nasal cannula, afebrile, heart rate 68, blood pressure 129/80. EKG sinus rhythm. WBC 4.7, hemoglobin 10.8, platelet count 238. Electrolytes were all normal, BUN 31 creatinine 1.15. Blood sugar 138. D-dimer 1.14. C-reactive protein 19.8. Troponin negative. Chest x-ray consistent with Covid [address] angiogram of the chest revealed no pulmonary embolism. Bilateral multifocal groundglass opacities and organizing consolidations with thoracic adenopathy consistent with Covid 19 infection. Patient was started on Decadron, and azithromycin and Remdesivir. Patient chest x-ray revealed bilateral interstitial infiltrate consistent with COVID-19 pneumonia, computed tomography scan of the chest confirmed above finding however no central prominent pulmonary embolism noted Review of the data revealed that patient has prior medical history of chronic persistent asthma, diabetes mellitus type 2, diabetic neuropathy hypertension hypertensive cardiovascular disease chronic lumbar pain, Objective - Vital Signs Vital signs: Vital Signs Temp 98.2 F 09/10/20 05:49 Pulse 63 09/10/20 08:00 Resp 21 09/10/20 08:00 BP 118/71 09/10/20 05:49 Pulse Ox 79 L 09/10/20 08:00 Intake & Output 09/09/20 09/10/20 09/10/20 18:59 06:59 18:59 Output Total 500 Balance -500 Output: Urine 500 Other: Voiding Method Toilet Toilet # Voids 3 # Bowel Movements 1 - Exam - Constitutional General appearance: cooperative, disheveled, morbidly obese - EENT Eyes: EOMI, PERRLA Ears: bilateral: normal - Neck Carotids: bilateral: upstroke normal Thyroid: bilateral: normal size - Respiratory Respiratory: bilateral: diminished, rhonchi - Cardiovascular Rhythm: regular Heart sounds: normal: S1, S2 - Gastrointestinal General gastrointestinal: distended, soft - Integumentary Integumentary: normal turgor - Neurologic Neurologic: CNII-XII intact - Musculoskeletal Musculoskeletal: gait normal, generalized weakness, strength equal bilaterally - Psychiatric Psychiatric: A&O x's 3, appropriate affect, intact judgment & insight - Labs CBC & Chem 7: 09/10/20 06:06 09/10/20 06:06 Labs: Abnormal Lab Results - Last 24 Hours (Table) 09/09/20 09/09/20 09/09/20 Range/Units 07:38 07:38 07:38 RBC (4.40-5.60) X 10*6/uL Hgb (13.0-17.0) g/dL Hct (39.6-50.0) % MPV (9.5-12.2) fL Immature Gran # (0.00-0.04) X 10*3/uL Eosinophils # (0.04-0.35) X 10*3/uL ESR >140 H (0-20) mm/Hr BUN (9.0-27.0) mg/dL BUN/Creatinine Ratio (12.00-20.00) Ratio Glucose (70-110) mg/dL POC Glucose (mg/dL) (75-99) mg/dL Ferritin 722.9 H (22.0-322.0) ng/mL Total Protein (6.2-8.2) g/dL Albumin (3.80-4.90) g/dL Albumin/Globulin Ratio (1.60-3.17) g/dL Procalcitonin 0.12 H (0.02-0.09) ng/mL SARS-CoV-2 Ab,Total (Non-Reactive) 09/09/20 09/09/20 09/09/20 Range/Units 07:38 17:09 20:42 RBC (4.40-5.60) X 10*6/uL Hgb (13.0-17.0) g/dL Hct (39.6-50.0) % MPV (9.5-12.2) fL Immature Gran # (0.00-0.04) X 10*3/uL Eosinophils # (0.04-0.35) X 10*3/uL ESR (0-20) mm/Hr BUN (9.0-27.0) mg/dL BUN/Creatinine Ratio (12.00-20.00) Ratio Glucose (70-110) mg/dL POC Glucose (mg/dL) 307 H 368 H (75-99) mg/dL Ferritin (22.0-322.0) ng/mL Total Protein (6.2-8.2) g/dL Albumin (3.80-4.90) g/dL Albumin/Globulin Ratio 1.46 L (1.60-3.17) g/dL Procalcitonin (0.02-0.09) ng/mL SARS-CoV-2 Ab,Total (Non-Reactive) 09/09/20 09/10/20 09/10/20 Range/Units 23:07 06:06 06:06 RBC 3.59 L (4.40-5.60) X 10*6/uL Hgb 10.0 L (13.0-17.0) g/dL Hct 30.4 L (39.6-50.0) % MPV 9.2 L (9.5-12.2) fL Immature Gran # 0.23 H (0.00-0.04) X 10*3/uL Eosinophils # 0 L (0.04-0.35) X 10*3/uL ESR (0-20) mm/Hr BUN 31.0 H (9.0-27.0) mg/dL BUN/Creatinine Ratio 31.00 H (12.00-20.00) Ratio Glucose 167 H (70-110) mg/dL POC Glucose (mg/dL) 272 H (75-99) mg/dL Ferritin (22.0-322.0) ng/mL Total Protein 6.1 L (6.2-8.2) g/dL Albumin 3.70 L (3.80-4.90) g/dL Albumin/Globulin Ratio 1.54 L (1.60-3.17) g/dL Procalcitonin (0.02-0.09) ng/mL SARS-CoV-2 Ab,Total (Non-Reactive) 09/10/20 09/10/20 09/10/20 Range/Units 06:06 07:34 11:36 RBC (4.40-5.60) X 10*6/uL Hgb (13.0-17.0) g/dL Hct (39.6-50.0) % MPV (9.5-12.2) fL Immature Gran # (0.00-0.04) X 10*3/uL Eosinophils # (0.04-0.35) X 10*3/uL ESR (0-20) mm/Hr BUN (9.0-27.0) mg/dL BUN/Creatinine Ratio (12.00-20.00) Ratio Glucose (70-110) mg/dL POC Glucose (mg/dL) 166 H 253 H (75-99) mg/dL Ferritin (22.0-322.0) ng/mL Total Protein (6.2-8.2) g/dL Albumin (3.80-4.90) g/dL Albumin/Globulin Ratio (1.60-3.17) g/dL Procalcitonin (0.02-0.09) ng/mL SARS-CoV-2 Ab,Total Reactive A (Non-Reactive) Assessment and Plan Assessment: Hemoptysis ongoing chronic for last 4 weeks evaluated for secondary bacterial p neum[place] Covid 19 pneumonia Acute hypoxic respirator failure Morbid obesity and sleep disorder breathing and sleep apnea Type 2 diabetes mellitus Diabetic neuropathy Hypertension hypertensive cardiovascular disease Chronic lumbar pain Chronic gout Depression BPH Plan: Patient to be started on Zosyn and IV Solu-Medrol will DC the Decadron Follow-up on sputum studies Repeat chest x-ray in 24-48 hours Continue REMdesivir Resume heparin 5000 units every 12 hourly Evaluated for bacterial pneumonia, pro-calcitonin is elevated awaiting results of sputum for Gram stain and culture Further plan of care as per clinical response of the patient will follow sanjana farias, Time with Patient: Greater than 30
[2020-09-10 16:59] LABS: Glucose,Whole Blood 299 mg/dL (75-99)
[2020-09-10 20:23] LABS: Glucose,Whole Blood 336 mg/dL (75-99)
[2020-09-10] MEDS: ZOLPIDEM 10 MG TAB PO PRN (21:25)
[2020-09-10] MEDS: METOPROLOL TARTRATE 50 MG TAB PO SCH (21:25)
[2020-09-10] MEDS: amLODIPine 10 MG TAB PO SCH (21:25)
[2020-09-10] MEDS: allopurinoL 300 MG TAB PO SCH (21:25)
[2020-09-10] MEDS: methylPREDNISolone SOD SUCCI 125 MG/2 ML VIAL IV SCH (23:31)
[2020-09-10] MEDS: PIPERACILLIN-TAZOBACTAM 3.375 GM in SODIUM CHLORIDE 0.9% 100 ML IVPB SCH (23:31)
[2020-09-11] MEDS: HYDROcodone/APAP 10-325MG 1 EACH TAB PO PRN ×3 (04:28→20:47)
[2020-09-11] MEDS: methylPREDNISolone SOD SUCCI 125 MG/2 ML VIAL IV SCH ×3 (05:59→17:05)
[2020-09-11 07:17] LABS: Glucose,Whole Blood 311 mg/dL (75-99)
[2020-09-11] MEDS: INSULIN ASPART (NovoLOG) 100 UNIT/ML VIAL SQ SCH ×5 (07:49→20:47)
--- NOTE | 2020-09-11 07:49 | PN ---
PROGRESS NOTE DATE OF SERVICE: 09/10/2020 REASON FOR FOLLOWUP: COVID-19 pneumonia. INTERVAL HISTORY: The patient is currently afebrile. Patient is breathing more comfortably. The patient denies having any chest pain. Cough has decreased in intensity. Less productive now. No vomiting. No abdominal pain. Sputum cultures were requested and not collected yet. PHYSICAL EXAMINATION: VITAL SIGNS: Blood pressure is 172/89, pulse of 63, temperature 97.7. He is 95% on 3 L nasal cannula. GENERAL DESCRIPTION: An elderly male up in the bed in no distress. RESPIRATORY SYSTEM: Unlabored breathing, decreased intensity of breath sounds, no wheeze. HEART: S1, S2. Regular rate and rhythm. ABDOMEN: Soft, no tenderness. LABS: SARS COVID2 antibodies are positive. BUN of 10, creatinine 1.0. Hemoglobin is 10.3, white count 6.15. DIAGNOSTIC IMPRESSION AND PLAN: Patient admitted to the hospital with shortness of breath and cough with concern for COVID-19 infection. The patient's antibodies are positive as well. The patient has received vaccination with concern for possible secondary bacterial pneumonia. Patient's procalcitonin did not get that high. Continue the current treatment protocol as the patient seems to have responded. Sputum culture has been requested, though not collected. Continue supportive care. MMODL / IJN: [id number] /
[2020-09-11] MEDS: LOSARTAN 50 MG TAB PO SCH (07:50)
[2020-09-11] MEDS: CITALOPRAM HYDROBROMIDE 20 MG TAB PO SCH (07:50)
[2020-09-11] MEDS: FUROSEMIDE 10 MG TAB PO SCH (07:50)
[2020-09-11] MEDS: INSULIN DETEMIR (LEVEMIR) 100 UNIT/ML SYR SQ SCH ×2 (07:50→20:47)
[2020-09-11] MEDS: GABAPENTIN 300 MG CAP PO SCH ×3 (07:50→20:45)
[2020-09-11] MEDS: PANTOPRAZOLE 40 MG TABLET PO SCH (07:51)
[2020-09-11] MEDS: ASCORBIC ACID 500 MG TAB PO SCH (07:51)
[2020-09-11] MEDS: HEPARIN SODIUM,PORCINE/PF 5,000 UNIT/0.5 ML SYRINGE SQ SCH ×2 (07:51→20:47)
[2020-09-11] MEDS: DOXAZOSIN 4 MG TAB PO SCH ×2 (07:51→17:04)
[2020-09-11] MEDS: ZINC SULFATE 220 MG CAP PO SCH (07:51)
[2020-09-11] MEDS: CHOLECALCIFEROL 25 MCG (1000 IU) TABLET PO SCH (07:51)
[2020-09-11] MEDS: ALBUTEROL HFA INHALER INHALATION SCH ×4 (08:06→21:34)
[2020-09-11] MEDS: PIPERACILLIN-TAZOBACTAM 3.375 GM in SODIUM CHLORIDE 0.9% 100 ML IVPB SCH (09:42)
[2020-09-11] MEDS ORDERED: LOSARTAN 50 MG TAB PO STA (09:46)
[2020-09-11] MEDS: REMDESIVIR 100 MG in SODIUM CHLORIDE 0.9% 250 ML IVPB SCH (10:16)
--- NOTE | 2020-09-11 10:30 | P.PN ---
Subjective Progress Note Date: 09/11/20 Principal diagnosis: Hemoptysis ongoing chronic for last 4 weeks evaluated for secondary bacterial pneumonia Covid 19 pneumonia Acute hypoxic respirator failure Morbid obesity and sleep disorder breathing and sleep apnea Type 2 diabetes mellitus Diabetic neuropathy Hypertension hypertensive cardiovascular disease Chronic lumbar pain Chronic gout Depression BPH 09/11/2020, patient sitting upright on the bed breathing comfortably cuff chest pain or shortness breath slightly better, hemoptysis still present but improved though it comes on old blood with deep coughing, no fresh blood has been noted, patient remains on IV Zosyn antibiotics and breathing treatments also therapy for Covid 19 pneumonia, sputum culture results are pending many gram-negative rods as well as gram-positive cocci were seen 09/10/2020, patient seen eval examined during the rounds labs reviewed medications reviewed, patient is doing slightly better breathing improved but however still have coughing with hemoptysis however its old blood with stable hemoglobin no overt hemoptysis however has been noted, sputum studies are being sent, on 3 L nasal cannula, oxygen saturation remained stable 96-97%, at times it does drop down 79%, will DC dexamethasone put patient on IV steroids, in ad dition we'll start IV Zosyn also pending sputum studies Patient is a 69-year-old male resident of [facility] due to her chronic back problem was undergoing short-term rehab patient came back positive for Crohn a virus 5 days ago, developed shortness of breath requiring supplemental oxygen came into the hospital for further evaluation and treatment, patient did receive both doses of vaccine back in May and June, patient has been having hemoptysis for last 4 weeks off and on on arrival oxygen saturation was noted to be 89%, BUN/creatinine is 31 and 1.15, Patient apparently developed symptoms of Covid and on September 01 was tested and came back positive. Patient states that all the residents became positive and the facility was shut down and he was transferred to [facility] for rehab. Patient complains of cough, no fever or chills. He states he had workup done at [facility] in [facility] on September 05 and at that time was also started on steroids for back pain. He has been spitting up blood since that time. He also has history of asthma. He denies use of home oxygen, nebulizers or CPAP. Patient presented to [facility] emergency center for evaluation and found to have pulse ox is 94% on 4 L nasal cannula, afebrile, heart rate 68, blood pressure 129/80. EKG sinus rhythm. WBC 4.7, hemoglobin 10.8, platelet count 238. Electrolytes were all normal, BUN 31 creatinine 1.15. Blood sugar 138. D-dimer 1.14. C-reactive protein 19.8. Troponin negative. Chest x-ray consistent with Covid [address] angiogram of the chest revealed no pulmonary embolism. Bilateral multifocal groundglass opacities and organizing consolidations with thoracic adenopathy consistent with Covid 19 infection. Patient was started on Decadron, and azithromycin and Remdesivir. Patient chest x-ray revealed bilateral interstitial infiltrate consistent with COVID-19 pneumonia, computed tomography scan of the chest confirmed above finding however no central prominent pulmonary embolism noted Review of the data revealed that patient has prior medical history of chronic persistent asthma, diabetes mellitus type 2, diabetic neuropathy hypertension hypertensive cardiovascular disease chronic lumbar pain, Objective - Vital Signs Vital signs: Vital Signs Temp 97.6 F 09/11/20 06:27 Pulse 53 L 09/11/20 06:27 Resp 18 09/10/20 20:00 BP 164/95 09/11/20 06:27 Pulse Ox 97 09/11/20 06:27 Intake & Output 09/10/20 09/11/20 09/11/20 18:59 06:59 18:59 Other: Voiding Method Toilet Toilet Toilet Urinal Urinal - Exam - Constitutional General appearance: cooperative, disheveled, morbidly obese - EENT Eyes: EOMI, PERRLA Ears: bilateral: normal - Neck Carotids: bilateral: upstroke normal Thyroid: bilateral: normal size - Respiratory Respiratory: bilateral: diminished, rhonchi - Cardiovascular Rhythm: regular Heart sounds: normal: S1, S2 - Gastrointestinal General gastrointestinal: distended, soft - Integumentary Integumentary: normal turgor - Neurologic Neurologic: CNII-XII intact - Musculoskeletal Musculoskeletal: gait normal, generalized weakness, strength equal bilaterally - Psychiatric Psychiatric: A&O x's 3, appropriate affect, intact judgment & insight - Labs CBC & Chem 7: 09/10/20 06:06 09/10/20 06:06 Labs: Abnormal Lab Results - Last 24 Hours (Table) 09/10/20 09/10/20 09/10/20 Range/Units 06:06 11:36 16:58 Immature Gran # 0.23 H (0.00-0.04) X 10*3/uL Eosinophils # 0 L (0.04-0.35) X 10*3/uL POC Glucose (mg/dL) 253 H 299 H (75-99) mg/dL 09/10/20 09/11/20 Range/Units 20:22 07:16 Immature Gran # (0.00-0.04) X 10*3/uL Eosinophils # (0.04-0.35) X 10*3/uL POC Glucose (mg/dL) 336 H 311 H (75-99) mg/dL Microbiology - Last 24 Hours (Table) 09/10/20 16:59 Gram Stain - Preliminary Sputum Sputum Culture - Preliminary Assessment and Plan Assessment: Hemoptysis ongoing chronic for last 4 weeks evaluated for secondary bacterial pneumonia, sputum obtained and results pending Covid 19 pneumonia Acute hypoxic respirator failure Morbid obesity and sleep disorder breathing and sleep apnea Type 2 diabetes mellitus Diabetic neuropathy Hypertension hypertensive cardiovascular disease Chronic lumbar pain Chronic gout Depression BPH Plan: Patient to be continued on Zosyn and IV Solu-Medrol Follow-up on sputum studies Repeat chest x-ray in 24-48 hours Continue REMdesivir Resume heparin 5000 units every 12 hourly Evaluated for bacterial pneumonia, pro-calcitonin is elevated awaiting results of sputum for Gram stain and culture Further plan of care as per clinical response of the patient will follow closely, Time with Patient: Greater than 30
[2020-09-11] MEDS ORDERED: PIPERACILLIN-TAZOBACTAM 3.375 GM in SODIUM CHLORIDE 0.9% 100 ML IVPB SCH (11:00)
[2020-09-11 11:58] LABS: Glucose,Whole Blood 359 mg/dL (75-99)
[2020-09-11] MEDS: SODIUM CHLORIDE 0.9% 1,000 ML IV SCH (13:21)
--- NOTE | 2020-09-11 13:25 | P.PN ---
Subjective Progress Note Date: 09/11/20 HISTORY OF PRESENT ILLNESS This is a 69-year-old male patient of Dr. Dave at [facility] with past medical history of asthma, diabetes mellitus type 2, diabetic neuropathy, hypertension, hyperlipidemia, chronic lumbar pain under the care of pain management in [facility]. Patient gives history that for 5-6 weeks he has had hemoptysis. He was previously at [facility] in [place]. Patient apparently developed symptoms of Covid and on September 01 was tested and came back positive. Patient states that all the residents became positive and the facility was shut down and he was transferred to [facility] for rehab. Patient complains of cough, no fever or chills. He states he had workup done at [facility] in [facility] on September 05 and at that time was also started on steroids for back pain. He has been spitting up blood since that time. He also has history of asthma. He denies use of home oxygen, nebulizers or CPAP. Patient presented to [facility] emergency center for evaluation and found to have pulse ox is 94% on 4 L nasal cannula, afebrile, heart rate 68, blood pressure 129/80. EKG sinus rhythm. WBC 4.7, hemoglobin 10.8, platelet count 238. Electrolytes were all normal, BUN 31 creatinine 1.15. Blood sugar 138. D-dimer 1.14. C-reactive protein 19.8. Troponin negative. Chest x-ray consistent with Covid [address] angiogram of the chest revealed no pulmonary embolism. Bilateral multifocal groundglass opacities and organizing consolidations with thoracic adenopathy consistent with Covid 19 infection. Patient was started on Decadron, and azithromycin and admitted to the [facility] floor. Consult in place with pulmonary medicine. We have ordered Remdesivir. 09/10: Patient's breathing status has been stable with pulse ox of 96% on 3 L nasal cannula. He has been afebrile, heart rate 63, blood pressure 118/71. Mike granda has been seen by Dr. Pierce. Heparin subcu is on hold due to hemoptysis. No worsening and hemoptysis today. Blood sugars are running between 166 and 368. Repeat blood work reveals WBC 6.1, hemoglobin 10, platelet count 311. Electrolytes normal. BUN 31 creatinine 1. Liver function tests are normal. Covid antibody total reactive. 5/23: Patient is off oxygen and pulse ox is 97% on room air. He states his breathing status is much improved. Less hemoptysis. He has been afebrile, hear t rate 53, blood pressure 164/95 and Lopressor will be increased to 100 mg daily. Anticipate discharge back to [facility] tomorrow. He is on Remdesivir day #4/. REVIEW OF SYSTEMS Constitutional: Denies fever, no chills, no night sweats. No weight change. No weakness, fatigue or lethargy. No daytime sleepiness. EENT: No headache. No blurred vision or double vision, no loss of vision. No loss of Hearing, no ringing in the ears, no dizziness. No nasal drainage or con gestion. No epistaxis. No sore throat. Lungs: Reports shortness of breath, reports cough, reports sputum production. No wheezing. Reports hemoptysis. Cardiovascular: No chest pain, no lower extremity edema. No palpitations. No paroxysmal nocturnal dyspnea. No orthopnea. No lightheadedness or dizziness. No syncopal episodes. Abdominal: No abdominal pain. No nausea, vomiting. No diarrhea. No constipation. No bloody or tarry stools.. No loss of appetite. Genitourinary: No dysuria, increased frequency, urgency. No urinary retention. Musculoskeletal: No myalgias. No muscle weakness, no gait dysfunction, no frequent falls. No back pain. No neck pain. Integumentary: No wounds, no lesions. No rash or pruritus. No unusual bruising. No change in hair or nails. Neurologic: No aphasia. No facial droop. No change in mentation. No head injury. No headache. No paralysis. No paresthesia. Psychiatric: No depression. No anxiety. No mood swings. Endocrine: No abnormal blood sugars. No weight change. No excessive sweating or thirst. No cold intolerance. PHYSICAL EXAMINATION Gen: This is a 69-year-old male. He is resting in recliner and a ppears to be comfortable and in no acute distress. HEENT: Head is atraumatic, normocephalic. Pupils equal, round. Sclerae is anicteric. NECK: Supple. No JVD. No lymphadenopathy. No thyromegaly. LUNGS: Diminished and crackles bilaterally. No intercostal retractions. No accessory muscle usage. Positive hemoptysis. HEART: Regular rate and rhythm. No murmur. ABDOMEN: Soft. Bowel sounds are present. No masses. No tenderness. EXTREMITIES: No pedal edema. No calf tenderness. Dorsalis pedis +2 bilaterally. NEUROLOGICAL: Patient is awake, alert and oriented x3. Cranial nerves 2 through 12 are grossly intact. ASSESSMENT AND PLAN 1. Acute on chronic hypoxic respiratory failure secondary to Covid 19 pneumonia. Continue Remdesivir, Decadron 6 mg IV twice daily, Ventolin inhaler 4 times daily, Zithromax 500 mg daily, vitamin supplements, oxygen therapy, consult with pulmonary medicine appreciated. Patient is off oxygen. 2. Hemoptysis since July. CAT scan as above. Pulmonary consult. 3. Mild intermittent asthma, stable. Continue Ventolin inhaler as needed. 4. Diabetes mellitus type 2. Hold metformin due to CAT scan. Continue NovoLog scale before meals and at bedtime, continue long-acting insulin 10 units daily. 5. Diabetic neuropathy. Continue gabapentin 300 mg 3 times daily. 6. Hypertension. Continue amlodipine 10 mg at bedtime, Lasix 10 mg daily, Cozaar 50 mg daily, Lopressor 50 mg at bedtime. 6. Hyperlipidemia. 7. Chronic lumbar pain under the care of pain management in [place]. Continue Flexeril 5 mg every 6 hours as needed, Neurontin, [place] 10 one every 4 hours as needed. 8. Chronic gout. Continue allopurinol 300 mg at bedtime. 9. Recurrent depression. Continue Celexa 20 mg daily. 10. Benign prostatic hypertrophy. Continue Cardura 4 mg twice daily. 11. GI prophylaxis. Protonix oral daily. 12. DVT prophylaxis. Heparin hold due to hemoptysis. SCDs and PATEL hargrove. DISCHARGE PLAN Return to [facility] under the care of Dr. Dave on Saturday. Impression and plan of care have been directed as dictated by the signing physician. Yumiko Morley nurse practitioner acting as scribe for signing physician. Objective - Vital Signs Vital signs: Vital Signs Temp 97.6 F 09/11/20 06:27 Pulse 53 L 09/11/20 06:27 Resp 18 09/10/20 20:00 BP 164/95 09/11/20 06:27 Pulse Ox 97 09/11/20 06:27 Intake & Output 09/10/20 09/11/2009/11/21 18:59 06:59 18:59 Other: Voiding Method Toilet Toilet Toilet Urinal Urinal - Labs CBC & Chem 7: 09/10/20 06:06 09/10/20 06:06 Labs: Abnormal Lab Results - Last 24 Hours (Table) 09/10/20 09/10/20 09/10/20 Range/Units 06:06 06:06 06:06 Immature Gran # 0.23 H (0.00-0.04) X 10*3/uL Eosinophils # 0 L (0.04-0.35) X 10*3/uL BUN 31.0 H (9.0-27.0) mg/dL BUN/Creatinine Ratio 31.00 H (12.00-20.00) Ratio Glucose 167 H (70-110) mg/dL POC Glucose (mg/dL) (75-99) mg/dL Total Protein 6.1 L (6.2-8.2) g/dL Albumin 3.70 L (3.80-4.90) g/dL Albumin/Globulin Ratio 1.54 L (1.60-3.17) g/dL SARS-CoV-2 Ab,Total Reactive A (Non-Reactive) 09/10/20 09/10/20 09/10/20 Range/Units 11:36 16:58 20:22 Immature Gran # (0.00-0.04) X 10*3/uL Eosinophils # (0.04-0.35) X 10*3/uL BUN (9.0-27.0) mg/dL BUN/Creatinine Ratio (12.00-20.00) Ratio Glucose (70-110) mg/dL POC Glucose (mg/dL) 253 H 299 H 336 H (75-99) mg/dL Total Protein (6.2-8.2) g/dL Albumin (3.80-4.90) g/dL Albumin/Globulin Ratio (1.60-3.17) g/dL SARS-CoV-2 Ab,Total (Non-Reactive) 09/11/20 Range/Units 07:16 Immature Gran # (0.00-0.04) X 10*3/uL Eosinophils # (0.04-0.35) X 10*3/uL BUN (9.0-27.0) mg/dL BUN/Creatinine Ratio (12.00-20.00) Ratio Glucose (70-110) mg/dL POC Glucose (mg/dL) 311 H (75-99) mg/dL Total Protein (6.2-8.2) g/dL Albumin (3.80-4.90) g/dL Albumin/Globulin Ratio (1.60-3.17) g/dL SARS-CoV-2 Ab,Total (Non-Reactive) Microbiology - Last 24 Hours (Table) 09/10/20 16:59 Gram Stain - Preliminary Sputum Sputum Culture - Preliminary
[2020-09-11 16:50] LABS: Glucose,Whole Blood 356 mg/dL (75-99)
[2020-09-11 20:38] LABS: Glucose,Whole Blood 388 mg/dL (75-99)
[2020-09-11] MEDS: METOPROLOL TARTRATE 50 MG TAB PO SCH (20:45)
[2020-09-11] MEDS: ZOLPIDEM 10 MG TAB PO PRN (20:46)
[2020-09-11] MEDS: allopurinoL 300 MG TAB PO SCH (20:46)
[2020-09-11] MEDS: amLODIPine 10 MG TAB PO SCH (20:46)
[2020-09-11] MEDS: CYCLOBENZAPRINE 5 MG TAB PO PRN (20:54)
[2020-09-12] MEDS: methylPREDNISolone SOD SUCCI 125 MG/2 ML VIAL IV SCH ×4 (01:18→18:20)
[2020-09-12] MEDS: PIPERACILLIN-TAZOBACTAM 3.375 GM in SODIUM CHLORIDE 0.9% 100 ML IVPB SCH ×3 (01:18→17:16)
[2020-09-12] MEDS: CYCLOBENZAPRINE 5 MG TAB PO PRN ×2 (04:24→21:26)
[2020-09-12] MEDS: HYDROcodone/APAP 10-325MG 1 EACH TAB PO PRN ×4 (04:24→21:27)
[2020-09-12 04:42] LABS: Glucose,Whole Blood 318 mg/dL (75-99)
--- NOTE | 2020-09-12 06:05 | PN ---
PROGRESS NOTE DATE OF SERVICE: 09/11/2020. REASON FOR FOLLOWUP: COVID-19 pneumonia. INTERVAL HISTORY: The patient is currently afebrile. Patient is breathing comfortably. He is down to room air now. The patient denies any chest pain. Occasional cough. Seems to be drying out. No nausea, no vomiting. No abdominal pain or diarrhea. PHYSICAL EXAMINATION: Blood pressure 178/96, pulse 78, temperature 97.5. He is 95% on room air. General description is an elderly male up in the chair in no distress. Respiratory system: Unlabored breathing, decreased breath sounds in the base, with no wheeze. Heart S1, S2. Regular rate and rhythm. ABDOMEN: Soft. No tenderness. LABS: No new labs have been obtained. DIAGNOSTIC IMPRESSION AND PLAN: Patient with acute COVID-19 infection in this patient shown overall improvement with Remdesivir, zinc and ascorbic acid and Solu-Medrol to continue while monitoring clinical course closely. Continue supportive care. MMODL / IJN: [id number] /
[2020-09-12 07:23] LABS: Glucose,Whole Blood 356 mg/dL (75-99)
[2020-09-12] MEDS: INSULIN DETEMIR (LEVEMIR) 100 UNIT/ML SYR SQ SCH ×2 (07:35→21:29)
[2020-09-12] MEDS: INSULIN ASPART (NovoLOG) 100 UNIT/ML VIAL SQ SCH ×7 (07:35→21:30)
[2020-09-12] MEDS: GABAPENTIN 300 MG CAP PO SCH ×3 (07:36→21:26)
[2020-09-12] MEDS: FUROSEMIDE 10 MG TAB PO SCH (07:36)
[2020-09-12] MEDS: CHOLECALCIFEROL 25 MCG (1000 IU) TABLET PO SCH (07:36)
[2020-09-12] MEDS: ASCORBIC ACID 500 MG TAB PO SCH (07:36)
[2020-09-12] MEDS: LOSARTAN 50 MG TAB PO SCH (07:36)
[2020-09-12] MEDS: PANTOPRAZOLE 40 MG TABLET PO SCH (07:37)
[2020-09-12] MEDS: ZINC SULFATE 220 MG CAP PO SCH (07:37)
[2020-09-12] MEDS: HEPARIN SODIUM,PORCINE/PF 5,000 UNIT/0.5 ML SYRINGE SQ SCH ×2 (07:39→21:31)
[2020-09-12] MEDS: CITALOPRAM HYDROBROMIDE 20 MG TAB PO SCH (07:39)
[2020-09-12] MEDS: DOXAZOSIN 4 MG TAB PO SCH ×2 (07:40→17:15)
--- NOTE | 2020-09-12 08:48 | P.DS ---
Providers Date of admission: 09/08/20 12:58 Expected date of discharge: 09/12/20 Attending physician: Linda Dave Consults: 09/08/20 12:42 Consult Physician Routine Consulting Provider: Misael Pierce Consult Reason/Comments: covid, hypoxic Do you want consulting provider notified?: Yes 09/09/20 13:02 Consult Physician Routine Consulting Provider: Cheryl Mcghee Consult Reason/Comments: infection Do you want consulting provider notified?: Already Contacted Primary care physician: Linda Dave [facility] Course: HISTORY OF PRESENT ILLNESS This is a 69-year-old male patient of Dr. Dave at [facility] with past medical history of asthma, diabetes mellitus type 2, diabetic neuropathy, hypertension, hyperlipidemia, chronic lumbar pain under the care of pain management in [facility]. Patient gives history that for 5-6 weeks he has had hemoptysis. He was previously at [facility] in [place]. Patient apparently developed symptoms of Covid and on September 01 was tested and came back positive. Patient states that all the residents became positive and the facility was shut down and he was transferred to [facility] for rehab. Patient complains of cough, no fever or chills. He states he had workup done at [facility] in [facility] on September 05 and at that time was also started on steroids for back pain. He has been spitting up blood since that time. He also has history of asthma. He denies use of home oxygen, nebulizers or CPAP. Patient presented to [facility] emergency center for evaluation and found to have pulse ox is 94% on 4 L nasal cannula, afebrile, heart rate 68, blood pressure 129/80. EKG sinus rhythm. WBC 4.7, hemoglobin 10.8, platelet count 238. Electrolytes were all normal, BUN 31 creatinine 1.15. Blood sugar 138. D-dimer 1.14. C-reactive protein 19.8. Troponin negative. Chest x-ray consistent with Covid [address] angiogram of the chest revealed no pulmonary embolism. Bilateral multifocal groundglass opacities and organizing consolidations with thoracic adenopathy consistent with Covid 19 infection. Patient was started on Decadron, and azithromycin and admitted to the Medr floor. Consult in place with pulmonary medicine. We have ordered Remdesivir. 09/10: Patient's breathing status has been stable with pulse ox of 96% on 3 L nasal cannula. He has been afebrile, heart rate 63, blood pressure 118/71. Patient has been seen by Dr. Pierce. Heparin subcu is on hold due to hemoptysis. No worsening and hemoptysis today. Blood sugars are running between 166 and 368 . Repeat blood work reveals WBC 6.1, hemoglobin 10, platelet count 311. Electrolytes normal. BUN 31 creatinine 1. Liver function tests are normal. Covid antibody total reactive. 09/11: Patient is off oxygen and pulse ox is 97% on room air. He states his breathing status is much improved. Less hemoptysis. He has been afebrile, heart rate 53, blood pressure 164/95 and Lopressor will be increased to 100 mg daily. Anticipate discharge back to [facility] tomorrow. He is on Remdesivir day #07/25. 09/12: Patient's blood sugars have been running in the 300s and insulin was increased to Levemir 15 units twice daily and NovoLog 5 units scheduled with each meal along with insulin scale which will be continued at the shelter. Blood pressure is also high despite changing losartan to 100 mg yesterday. Hydralazine 50 mg twice daily will be added. Blood pressure is currently 170/79, heart rate 61, afebrile, pulse ox 96% on room air. Breathing status remained stable. Patient is finishing up REM to severe today. Patient will be discharged back to [facility] today in stable condition. ASSESSMENT AND PLAN 1. Acute on chronic hypoxic respiratory failure secondary to Covid 19 pneumonia. 2. Hemoptysis since July. 3. Mild intermittent asthma, stable. 4. Diabetes mellitus type 2, uncontrolled with hyperglycemia secondary to steroids. 5. Diabetic neuropathy. 6. Hypertension. 7. Hyperlipidemia. 8. Chronic lumbar pain under the care of pain management in [place]. 9. Chronic gout. 10. Recurrent depression. 11. Benign prostatic hypertrophy. DISCHARGE PLAN Return to [facility] under the care of Dr. Dave. Impression and plan of care have been directed as dictated by the signing physician. Yumiko Morley nurse practitioner acting as scribe for signing physician. Patient Condition at Discharge: Good Plan - Discharge Summary Discharge Rx Participant: No New Discharge Prescriptions: New INSULIN ASPART (NovoLOG) [NovoLOG (formulary)] 5 unit SQ AC-TID vial Zinc Sulfate [Orazinc] 220 mg PO DAILY cap Pantoprazole [Protonix] 40 mg PO AC-BRKFST tablet. Ascorbic Acid [Vitamin C] 1,000 mg PO DAILY tab predniSONE 0 mg PO DIRECTED #30 tab hydrALAZINE HCL [Apresoline] 50 mg PO BID #30 tab Losartan [Cozaar] 100 mg PO DAILY tab Insulin Detemir (Levemir) [Levemir] 15 unit SQ DAILY@0700 syr Insulin Detemir (Levemir) [Levemir] 15 unit SQ HS syr Cholecalciferol [Vitamin D3 (25 Mcg = 1000 Iu)] 50 mcg PO DAILY tablet Continue Cyclobenzaprine [Flexeril] 5 mg PO Q6H PRN PRN Reason: Muscle Spasm Insulin Lispro [humaLOG Kwikpen] See Protocol SQ ACHS Albuterol Sulfate [Proventil Hfa] 2 puff INHALATION RT-QID Sodium Chloride [Saline Nasal [place]] 1 spray EA NOSTRIL BID@0900,2100 Furosemide [Lasix] 10 mg PO DAILY@0900 Citalopram Hydrobromide [CeleXA] 20 mg PO DAILY@0900 Gabapentin [Neurontin] 300 mg PO TID@0900,1300,2100 #9 cap Allopurinol [Zyloprim] 300 mg PO HS@2100 Acetaminophen Tab [Tylenol] 650 mg PO Q4H PRN PRN Reason: Fever metFORMIN HCL [Glucophage] 1,000 mg PO BID@0900,1700 Doxazosin [Cardura] 4 mg PO BID@0900,1700 amLODIPine [Norvasc] 10 mg PO HS Metoprolol Tartrate [Lopressor] 50 mg PO HS@2100 Zolpidem [Ambien] 10 mg PO HS PRN #3 tab PRN Reason: Insomnia HYDROcodone/APAP 10-325MG [[place] 10-325] 1 tab PO Q4H PRN #18 tab PRN Reason: Pain Discontinued Insulin Glargine,Hum.rec.anlog [Semglee Pen] 10 units SQ DAILY@0900 Losartan [Cozaar] 50 mg PO DAILY@0900 Discharge Medication List Acetaminophen Tab [Tylenol] 650 mg PO Q4H PRN 09/08/20 [History] Albuterol Sulfate [Proventil Hfa] 2 puff INHALATION RT-QID 09/08/20 [History] Allopurinol [Zyloprim] 300 mg PO HS@209909/08/20 [History] Citalopram Hydrobromide [CeleXA] 20 mg PO DAILY@0900 09/08/20 [History] Cyclobenzaprine [Flexeril] 5 mg PO Q6H PRN 09/08/20 [History] Doxazosin [Cardura] 4 mg PO BID@0900,1700 09/08/20 [History] Furosemide [Lasix] 10 mg PO DAILY@0900 09/08/20 [History] Insulin Lispro [humaLOG Kwikpen] See Protocol SQ ACHS 09/08/20 [History] Metoprolol Tartrate [Lopressor] 50 mg PO HS@209909/08/20 [History] Sodium Chloride [Saline Nasal [place]] 1 spray EA NOSTRIL BID@0900,209909/08/20 [History] amLODIPine [Norvasc] 10 mg PO HS 09/08/20 [History] metFORMIN HCL [Glucophage] 1,000 mg PO BID@0900,1700 09/08/20 [History] Ascorbic Acid [Vitamin C] 1,000 mg PO DAILY tab 09/12/20 [Rx] Cholecalciferol [Vitamin D3 (25 Mcg = 1000 Iu)] 50 mcg PO DAILY tablet 09/12/20 [Rx] Gabapentin [Neurontin] 300 mg PO TID@0900,1300,2100 #9 cap 09/12/20 [Rx] HYDROcodone/APAP 10-325MG [[place] 10-325] 1 tab PO Q4H PRN #18 tab 09/12/20 [Rx] INSULIN ASPART (NovoLOG) [NovoLOG (formulary)] 5 unit SQ AC-TID vial 09/12/20 [Rx] Insulin Detemir (Levemir) [Levemir] 15 unit SQ DAILY@0700 syr 09/12/20 [Rx] Insulin Detemir (Levemir) [Levemir] 15 unit SQ HS syr 09/12/20 [Rx] Losartan [Cozaar] 100 mg PO DAILY tab 09/12/20 [Rx] Pantoprazole [Protonix] 40 mg PO AC-BRKFST tablet. 09/12/20 [Rx] Zinc Sulfate [Orazinc] 220 mg PO DAILY cap 09/12/20 [Rx] Zolpidem [Ambien] 10 mg PO HS PRN #3 tab 09/12/20 [Rx] hydrALAZINE HCL [Apresoline] 50 mg PO BID #30 tab 09/12/20 [Rx] predniSONE 0 mg PO DIRECTED #30 tab 09/12/20 [Rx] Follow up Appointment(s)/Referral(s): Linda Dave MD [Primary Care Provider] - 1 Week (at [facility]) Misael Pierce MD [STAFF PHYSICIAN] - 1 Week Activity/Diet/Wound Care/Special Instructions: Meals on Wheels #[phone] Discharge Disposition: TRANSFER TO SNF/ECF
[2020-09-12] MEDS: ALBUTEROL HFA INHALER INHALATION SCH ×4 (09:25→21:47)
[2020-09-12] MEDS: hydrALAZINE HCL 50 MG TAB PO SCH ×2 (09:42→21:27)
--- NOTE | 2020-09-12 11:12 | P.PN ---
Subjective Progress Note Date: 09/12/20 Principal diagnosis: Hemoptysis ongoing chronic for last 4 weeks evaluated for secondary bacterial pneumonia Covid 19 pneumonia Acute hypoxic respirator failure Morbid obesity and sleep disorder breathing and sleep apnea Type 2 diabetes mellitus Diabetic neuropathy Hypertension hypertensive cardiovascular disease Chronic lumbar pain Chronic gout Depression BPH 09/12/2020, patient seen eval examined during the rounds labs reviewed medications reviewed hemoptysis better now still have some old blood, patient is running high sugars and blood pressure, patient will likely need IV steroids seems to be helping diffuse lung disease and hemoptysis, sputum culture results are pending polymicrobial smears was positive on Gram stain awaiting final ID in the meantime continue Zosyn and vancomycin and IV steroids 09/11/2020, patient sitting upright on the bed breathing comfortably cuff chest pain or shortness breath slightly better, hemoptysis still present but improved though it comes on old blood with deep coughing, no fresh blood has been noted, patient remains on IV Zosyn antibiotics and breathing treatments also therapy for Covid 19 pneumonia, sputum culture results are pending many gram-negative rods as well as gram-positive cocci were seen 09/10/2020, patient seen eval examined during the rounds labs reviewed medications reviewed, patient is doing slightly better breathing improved but however still have coughing with hemoptysis however its old blood with stable hemoglobin no overt hemoptysis however has been noted, sputum studies are being sent, on 3 L nasal cannula, oxygen saturation remained stable 96-97%, at times it does drop down 79%, will DC dexamethasone put patient on IV steroids, in addition we'll start IV Zosyn also pending sputum studies Patient is a 69-year-old male resident of [place] due to her chronic back problem was undergoing short-term rehab patient came back positive for Crohn a virus 5 days ago, developed shortness of breath requiring supplemental oxygen came into the hospital for further evaluation and treatment, patient did receive both doses of vaccine back in May and June, patient has been having hemoptysis for last 4 weeks off and on on arrival oxygen saturation was noted to be 89%, BUN/creatinine is 31 and 1.15, Patient apparently developed symptoms of Covid and on September 01 was tested and came back positive. Patient states that all the residents became positive and the facility was shut down and he was transferred to [facility] for rehab. Patient complains of cough, no fever or chills. He states he had workup done at [facility] in [facility] on September 05 and at that time was also started on steroids for back pain. He has been spitting up blood since that time. He also has hi story of asthma. He denies use of home oxygen, nebulizers or CPAP. Patient presented to [facility] emergency center for evaluation and found to have pulse ox is 94% on 4 L nasal cannula, afebrile, heart rate 68, blood pressure 129/80. EKG sinus rhythm. WBC 4.7, hemoglobin 10.8, platelet count 238. Electrolytes were all normal, BUN 31 creatinine 1.15. Blood sugar 138. D-dimer 1.14. C-reactive protein 19.8. Troponin negative. Chest x-ray consistent with Covid [address] angiogram of the chest revealed no pulmonary embolism. Bilateral multifocal groundglass opacities and organizing consolidations with thoracic adenopathy consistent with Covid 19 infection. Pa tient was started on Decadron, and azithromycin and Remdesivir. Patient chest x-ray revealed bilateral interstitial infiltrate consistent with COVID-19 pneumonia, computed tomography scan of the chest confirmed above finding however no central prominent pulmonary embolism noted Review of the data revealed that patient has prior medical history of chronic persistent asthma, diabetes mellitus type 2, diabetic neuropathy hypertension hypertensive cardiovascular disease chronic lumbar pain, Objective - Vital Signs Vital signs: Vital Signs Temp 97.6 F 09/12/20 09:43 Pulse 61 09/12/20 09:43 Resp 18 09/12/20 09:43 BP 170/79 09/12/20 09:43 Pulse Ox 96 09/12/20 09:43 Intake & Output 09/11/20 09/12/20 09/12/20 18:59 06:59 18:59 Output Total 2 Balance -2 Output: Urine 2 Other: Voiding Method Toilet Toilet Toilet Urinal Urinal Urinal # Voids 1 # Bowel Movements 1 - Exam - Constitutional General appearance: cooperative, disheveled, morbidly obese - EENT Eyes: EOMI, PERRLA Ears: bilateral: normal - Neck Carotids: bilateral: upstroke normal Thyroid: bilateral: normal size - Respiratory Respiratory: bilateral: diminished, rhonchi - Cardiovascular Rhythm: regular Heart sounds: normal: S1, S2 - Gastrointestinal General gastrointestinal: distended, soft - Integumentary Integumentary: normal turgor - Neurologic Neurologic: CNII-XII intact - Musculoskeletal Musculoskeletal: gait normal, generalized weakness, strength equal bilaterally - Psychiatric Psychiatric: A&O x's 3, appropriate affect, intact judgment & insight - Labs CBC & Chem 7: 09/10/20 06:06 09/10/20 06:06 Labs: Abnormal Lab Results - Last 24 Hours (Table) 09/11/20 09/11/20 09/11/20 Range/Units 11:56 16:48 20:37 POC Glucose (mg/dL) 359 H 356 H 388 H (75-99) mg/dL 09/12/20 09/12/20 Range/Units 04:40 07:21 POC Glucose (mg/dL) 318 H 356 H (75-99) mg/dL Microbiology - Last 24 Hours (Table) 09/10/20 16:59 Gram Stain - Final Sputum Sputum Culture - Final Assessment and Plan Assessment: Hemoptysis ongoing chronic for last 4 weeks evaluated for secondary bacterial pneumonia, sputum obtained and results pending Covid 19 pneumonia Acute hypoxic respirator failure Morbid obesity and sleep disorder breathing and sleep apnea Type 2 diabetes mellitus Diabetic neuropathy Hypertension hypertensive cardiovascular disease Chronic lumbar pain Chronic gout Depression BPH Plan: Patient to be continued on Zosyn with Zosyn and IV Solu-Medrol Follow-up on sputum studies Repeat chest x-ray in 24-48 hours Continue REMdesivir Resume heparin 5000 units every 12 hourly Evaluated for bacterial pneumonia, pro-calcitonin is elevated awaiting results of sputum for Gram stain and culture Further plan of care as per clinical response of the patient will follow closely, Time with Patient: Greater than 30
[2020-09-12] MEDS: metFORMIN 500 MG TAB PO SCH ×2 (11:30→17:13)
[2020-09-12] MEDS: SODIUM CHLORIDE 0.9% 1,000 ML IV SCH (11:30)
[2020-09-12 11:31] LABS: Glucose,Whole Blood 393 mg/dL (75-99)
[2020-09-12] MEDS: REMDESIVIR 100 MG in SODIUM CHLORIDE 0.9% 250 ML IVPB SCH (12:45)
[2020-09-12 16:51] LABS: Glucose,Whole Blood 338 mg/dL (75-99)
[2020-09-12 21:07] LABS: Glucose,Whole Blood 343 mg/dL (75-99)
[2020-09-12] MEDS: ZOLPIDEM 10 MG TAB PO PRN (21:26)
[2020-09-12] MEDS: allopurinoL 300 MG TAB PO SCH (21:26)
[2020-09-12] MEDS: amLODIPine 10 MG TAB PO SCH (21:26)
[2020-09-12] MEDS: METOPROLOL TARTRATE 50 MG TAB PO SCH (21:27)
--- NOTE | 2020-09-12 22:33 | PN ---
PROGRESS NOTE DATE OF SERVICE: 09/12/2020 REASON FOR FOLLOWUP: COVID-19 pneumonia. INTERVAL HISTORY: The patient is currently afebrile. The patient is breathing comfortably on room air. The patient denies having chest pain. He continues to have a cough with some dark sputum. No chest pain. No abdominal pain or any diarrhea. PHYSICAL EXAMINATION: Blood pressure is 170/79 with a pulse of 61, temperature 97.6. He is 96% on room air. General description is an elderly male up in the chair in no distress. RESPIRATORY SYSTEM: Unlabored breathing with bilateral diminished breath sounds. HEART: S1, S2. Regular rate and rhythm. ABDOMEN: Soft. There is no tenderness. EXTREMITIES: No edema of the feet. LABS: No new labs have been obtained today. Sputum has been negative. DIAGNOSTIC IMPRESSION AND PLAN: Patient admitted to hospital with acute COVID-19 pneumonia in this patient who seems to have shown overall clinical improvement with the current treatment protocol of remdesivir, Solu-Medrol, zinc and ascorbic acid. Clinical suspicion low for secondary bacterial pneumonia, on Zosyn. Repeat his inflammatory markers tomorrow and continue supportive care. MMODL / IJN: [id number] /
[2020-09-13] MEDS: HYDROcodone/APAP 10-325MG 1 EACH TAB PO PRN ×4 (01:45→21:48)
[2020-09-13] MEDS: PIPERACILLIN-TAZOBACTAM 3.375 GM in SODIUM CHLORIDE 0.9% 100 ML IVPB SCH ×3 (01:47→16:50)
[2020-09-13] MEDS: methylPREDNISolone SOD SUCCI 125 MG/2 ML VIAL IV SCH ×3 (01:47→11:59)
[2020-09-13 02:02] LABS: Glucose,Whole Blood 271 mg/dL (75-99)
[2020-09-13 07:09] LABS: Glucose,Whole Blood 268 mg/dL (75-99)
[2020-09-13] MEDS: ALBUTEROL HFA INHALER INHALATION SCH ×4 (07:14→20:41)
[2020-09-13] MEDS: INSULIN ASPART (NovoLOG) 100 UNIT/ML VIAL SQ SCH ×8 (07:58→21:51)
[2020-09-13] MEDS: FUROSEMIDE 10 MG TAB PO SCH (07:58)
[2020-09-13] MEDS: INSULIN DETEMIR (LEVEMIR) 100 UNIT/ML SYR SQ SCH ×2 (07:58→21:50)
[2020-09-13] MEDS: PANTOPRAZOLE 40 MG TABLET PO SCH (07:59)
[2020-09-13] MEDS: CHOLECALCIFEROL 25 MCG (1000 IU) TABLET PO SCH (07:59)
[2020-09-13] MEDS: ASCORBIC ACID 500 MG TAB PO SCH (07:59)
[2020-09-13] MEDS: GABAPENTIN 300 MG CAP PO SCH ×3 (07:59→21:48)
[2020-09-13] MEDS: LOSARTAN 50 MG TAB PO SCH (07:59)
[2020-09-13] MEDS: ZINC SULFATE 220 MG CAP PO SCH (07:59)
[2020-09-13] MEDS: metFORMIN 500 MG TAB PO SCH ×2 (07:59→16:49)
[2020-09-13] MEDS: hydrALAZINE HCL 50 MG TAB PO SCH ×3 (07:59→21:48)
[2020-09-13] MEDS: DOXAZOSIN 4 MG TAB PO SCH ×2 (07:59→16:49)
[2020-09-13] MEDS: CITALOPRAM HYDROBROMIDE 20 MG TAB PO SCH (08:00)
[2020-09-13] MEDS: HEPARIN SODIUM,PORCINE/PF 5,000 UNIT/0.5 ML SYRINGE SQ SCH ×2 (08:00→21:51)
[2020-09-13] MEDS: CYCLOBENZAPRINE 5 MG TAB PO PRN ×2 (08:05→21:48)
[2020-09-13] MEDS: REMDESIVIR 100 MG in SODIUM CHLORIDE 0.9% 250 ML IVPB SCH (10:14)
[2020-09-13 10:21] LABS: HCT 33.5 % (39.6-50.0); HGB 11.1 g/dL (13.0-17.0); MCH 27.8 pg (27.0-32.0); MCHC 33.1 g/dL (32.0-37.0); MCV 83.8 fL (80.0-97.0); Mean Platelet Volume 9.2 fL (9.5-12.2); Platelet Count 377 X 10*3/uL (140-440); RDW 14.3 % (11.5-14.5); WBC 7.89 X 10*3/uL (4.50-10.00)
--- NOTE | 2020-09-13 10:30 | P.PN ---
Subjective Progress Note Date: 09/13/20 Principal diagnosis: Hemoptysis ongoing chronic for last 4 weeks evaluated for secondary bacterial pneumonia Covid 19 pneumonia Acute hypoxic respirator failure Morbid obesity and sleep disorder breathing and sleep apnea Type 2 diabetes mellitus Diabetic neuropathy Hypertension hypertensive cardiovascular disease Chronic lumbar pain Chronic gout Depression BPH 09/13/2020, patient seen eval examined during the rounds labs reviewed medications reviewed from [facility] status remains stable breathing comfortably denies any chest pain, hemoptysis significantly improved on the occasional streak of old blood have been seen mostly its san phlegm now, sputum culture results are back normal respiratory candace is seen, given the improvement in clinical condition on current therapy and we'll continue it for now however patient can be discharged to [facility] in next 24 hours on oral Augmentin and oral prednisone would recommend Augmentin 875 twice a day for 1 week and prednisone 40 mg daily for 1 week as well would recommend follow-up in office in about 2-4 weeks, early if need arises 09/12/2020, patient seen eval examined during the rounds labs reviewed medications reviewed hemoptysis better now still have some old blood, patient is running high sugars and blood pressure, patient will likely need IV steroids seems to be helping diffuse lung disease and hemoptysis, sputum culture results are pending polymicrobial smears was positive on Gram stain awaiting final ID in the meantime continue Zosyn and vancomycin and IV steroids 09/11/2020, patient sitting upright on the bed breathing comfortably cuff chest pain or shortness breath slightly better, hemoptysis still present but improved though it comes on old blood with deep coughing, no fresh blood has been noted, patient remains on IV Zosyn antibiotics and breathing treatments also therapy for Covid 19 pneumonia, sputum culture results are pending many gram-negative rods as well as gram-positive cocci were seen 09/10/2020, patient seen eval examined during the rounds labs reviewed medi cations reviewed, patient is doing slightly better breathing improved but however still have coughing with hemoptysis however its old blood with stable hemoglobin no overt hemoptysis however has been noted, sputum studies are being sent, on 3 L nasal cannula, oxygen saturation remained stable 96-97%, at times it does drop down 79%, will DC dexamethasone put patient on IV steroids, in addition we'll start IV Zosyn also pending sputum studies Patient is a 69-year-old male resident of [facility] due to her chronic back problem was undergoing short-term rehab patient came back positive for Crohn a virus 5 days ago, developed shortness of breath requiring supplemental oxygen came into the hospital for further evaluation and treatment, patient did receive both doses of vaccine back in May and June, patient has been having hemoptysis for last 4 weeks off and on on arrival oxygen saturation was noted to be 89%, BUN/creatinine is 31 and 1.15, Patient apparently developed symptoms of Covid and on September 01 was tested and came back positive. Patient states that all the residents became positive and the facility was shut down and he was transferred to [facility] for rehab. Patient complains of cough, no fever or chills. He states he had workup done at [facility] in [facility] on September 05 and at that time was also started on steroids for back pain. He has been spitting up blood since that time. He also has history of asthma. He denies use of home oxygen, nebulizers or CPAP. Patient presented to [facility] emergency center for evaluation and found to have pulse ox is 94% on 4 L nasal cannula, afebrile, heart rate 68, blood pressure 129/80. EKG sinus rhythm. WBC 4.7, hemoglobin 10.8, platelet count 238. Electrolytes were all normal, BUN 31 creatinine 1.15. Blood sugar 138. D-dimer 1.14. C-reactive protein 19.8. Troponin negative. Chest x-ray consistent with Covid [address] angiogram of the chest revealed no pulmonary embolism. Bilateral multifocal groundglass opacities and organizing consolidations with thoracic adenopathy consistent with Covid 19 infection. Patient was started on Decadron, and azithromycin and Remdesivir. Patient chest x-ray revealed bilateral interstitial infiltrate consistent with COVID-19 pneumonia, computed tomography scan of the chest confirmed above finding however no central prominent pulmonary embolism noted Review of the data revealed that patient has prior medical history of chronic pe rsistent asthma, diabetes mellitus type 2, diabetic neuropathy hypertension hypertensive cardiovascular disease chronic lumbar pain, Objective - Vital Signs Vital signs: Vital Signs Temp 97.7 F 09/13/20 08:00 Pulse 72 09/13/20 08:00 Resp 19 09/13/20 08:00 BP 179/92 09/13/20 08:00 Pulse Ox 94 L 09/13/20 08:00 Intake & Output 09/12/20 09/13/20 09/13/20 18:59 06:59 18:59 Intake Total 940 510 Balance 940 510 Intake: Intake, IV Titration 510 Amount Piperacillin-Tazobactam 3 100 .375 gm In Sodium Chloride 0.9% 100 ml @ 25 mls/hr IVPB Q8H [facility] Rx#: [id number] Remdesivir 100 mg In 250 Sodium Chloride 0.9% 250 ml @ 250 mls/hr IVPB Q24H [facility] Rx#:[id number] Sodium Chloride 0.9% 1, 160 000 ml @ 20 mls/hr IV . Q24H [facility] Rx#:[id number] Oral 940 Other: Voiding Method Toilet Toilet Urinal Urinal # Voids 2 2 - Exam - Constitutional General appearance: cooperative, disheveled, morbidly obese - EENT Eyes: EOMI, PERRLA Ears: bilateral: normal - Neck Carotids: bilateral: upstroke normal Thyroid: bilateral: normal size - Respiratory Respiratory: bilateral: diminished, rhonchi - Cardiovascular Rhythm: regular Heart sounds: normal: S1, S2 - Gastrointestinal General gastrointestinal: distended, soft - Integumentary Integumentary: normal turgor - Neurologic Neurologic: CNII-XII intact - Musculoskeletal Musculoskeletal: gait normal, generalized weakness, strength equal bilaterally - Psychiatric Psychiatric: A&O x's 3, appropriate affect, intact judgment & insight - Labs CBC & Chem 7: 09/13/20 06:09 09/10/20 06:06 Labs: Abnormal Lab Results - Last 24 Hours (Table) 09/12/20 09/12/20 09/12/20 Range/Units 11:29 16:49 21:05 RBC (4.40-5.60) X 10*6/uL Hgb (13.0-17.0) g/dL Hct (39.6-50.0) % MPV (9.5-12.2) fL D-Dimer (<0.60) mg/L FEU POC Glucose (mg/dL) 393 H 338 H 343 H (75-99) mg/dL 09/13/20 09/13/20 09/13/20 Range/Units 02:00 06:09 06:09 RBC 4.00 L (4.40-5.60) X 10*6/uL Hgb 11.1 L (13.0-17.0) g/dL Hct 33.5 L (39.6-50.0) % MPV 9.2 L (9.5-12.2) fL D-Dimer 1.17 H (<0.60) mg/L FEU POC Glucose (mg/dL) 271 H (75-99) mg/dL 09/13/20 Range/Units 07:07 RBC (4.40-5.60) X 10*6/uL Hgb (13.0-17.0) g/dL Hct (39.6-50.0) % MPV (9.5-12.2) fL D-Dimer (<0.60) mg/L FEU POC Glucose (mg/dL) 268 H (75-99) mg/dL Microbiology - Last 24 Hours (Table) 09/10/20 16:59 Gram Stain - Final Sputum Sputum Culture - Final Assessment and Plan Assessment: Hemoptysis ongoing chronic for last 4 weeks evaluated for secondary bacterial pneumonia, sputum results reviewed Covid 19 pneumonia Acute hypoxic respirator failure Morbid obesity and sleep disorder breathing and sleep apnea Type 2 diabetes mellitus Diabetic neuropathy Hypertension hypertensive cardiovascular disease Chronic lumbar pain Chronic gout Depression BPH Plan: Patient to be continued on Zosyn with and IV Solu-Medrol , discussed with primary service about antibiotics and steroids Follow-up on sputum studies Continue REMdesivir to finish 5 day therapy Continue heparin 5000 units every 12 hourly Further plan of care as per clinical response of the patient will follow closely, Time with Patient: Greater than 30
[2020-09-13 10:56] LABS: Basophils # (M) 0 X 10*3/uL (0.00-0.10); Eosinophils # (M) 0 X 10*3/uL (0.04-0.35); Lymphocytes # (M) 0.24 X 10*3/uL (0.90-5.00); Monocytes # (M) 0.32 X 10*3/uL (0.20-1.00); Myelocytes % 1 % (0-0); Neutrophils # (M) 7.26 X 10*3/uL (2.00-8.90); Neutrophils % (M) 92 %
[2020-09-13 11:30] LABS: Glucose,Whole Blood 270 mg/dL (75-99)
--- NOTE | 2020-09-13 13:04 | P.PN ---
Subjective Progress Note Date: 09/12/20 HISTORY OF PRESENT ILLNESS This is a 69-year-old male patient of Dr. Dave at [facility] with past medical history of asthma, diabetes mellitus type 2, diabetic neuropathy, hypertension, hyperlipidemia, chronic lumbar pain under the care of pain management in [facility]. Patient gives history that for 5-6 weeks he has had hemoptysis. He was previously at [facility] in [place]. Patient apparently developed symptoms of Covid and on September 01 was tested and came back positive. Patient states that all the residents became positive and the facility was shut down and he was transferred to [facility] for rehab. Patient complains of cough, no fever or chills. He states he had workup done at [facility] in [facility] on September 05 and at that time was also started on steroids for back pain. He has been spitting up blood since that time. He also has history of asthma. He denies use of home oxygen, nebulizers or CPAP. Patient presented to [facility] emergency center for evaluation and found to have pulse ox is 94% on 4 L nasal cannula, afebrile, heart rate 68, blood pressure 129/80. EKG sinus rhythm. WBC 4.7, hemoglobin 10.8, platelet count 238. Electrolytes were all normal, BUN 31 creatinine 1.15. Blood sugar 138. D-dimer 1.14. C-reactive protein 19.8. Troponin negative. Chest x-ray consistent with Covid [address] angiogram of the chest revealed no pulmonary embolism. Bilateral multifocal groundglass opacities and organizing consolidations with thoracic adenopathy consistent with Covid 19 infection. Patient was started on Decadron, and azithromycin and admitted to the [facility] floor. Consult in place with pulmonary medicine. We have ordered Remdesivir. 09/10: Patient's breathing status has been stable with pulse ox of 96% on 3 L nasal cannula. He has been afebrile, heart rate 63, blood pressure 118/71. Mike granda has been seen by Dr. Pierce. Heparin subcu is on hold due to hemoptysis. No worsening and hemoptysis today. Blood sugars are running between 166 and 368. Repeat blood work reveals WBC 6.1, hemoglobin 10, platelet count 311. Electrolytes normal. BUN 31 creatinine 1. Liver function tests are normal. Covid antibody total reactive. 5/23: Patient is off oxygen and pulse ox is 97% on room air. He states his breathing status is much improved. Less hemoptysis. He has been afebrile, hear t rate 53, blood pressure 164/95 and Lopressor will be increased to 100 mg daily. Anticipate discharge back to [facility] tomorrow. He is on Remdesivir day #07/25. 09/12: Patient's blood sugars have been running in the 300s and insulin was increased to Levemir 15 units twice daily and NovoLog 5 units scheduled with each meal along with insulin scale which will be continued at the skilled nursing. Blood pressure is also high despite changing losartan to 100 mg yesterday. Hydralazine 50 mg twice daily will be added. Blood pressure is currently 170/79, heart rate 61, afebrile, pulse ox 96% on room air. Breathing status remained stable. Patient is finishing up Remdesivir today. Dr. Pierce would like to keep the patient until Saturday. 09/13: Patient's breathing status continues to improve gradually on a daily basis. He remains on IV Solu-Medrol and IV antibiotics in form of Zosyn. Patient has been afebrile, heart rate 72, blood pressure 179/92, pulse ox 94% on room air. Repeat blood work reveals WBC 7.8, hemoglobin 0.1, platelet count 277. D-dimer 1.17. Blood sugars are still running in the 200s. Pro-calcitonin 0.07. Hydralazine increased to 100 mg twice daily and insulin changed to Levemir 20 units twice daily and NovoLog increased to 8 units scheduled with meals. REVIEW OF SYSTEMS Constitutional: Denies fever, no chills, no night sweats. No weight change. No weakness, fatigue or lethargy. No daytime sleepiness. EENT: No headache. No blurred vision or double vision, no loss of vision. No loss of Hearing, no ringing in the ears, no dizziness. No nasal drainage or congestion. No epistaxis. No sore throat. Lungs: Reports shortness of breath, reports cough, reports sputum production. No wheezing. Reports hemoptysis. Cardiovascular: No chest pain, no lower extremity edema. No palpitations. No paroxysmal nocturnal dyspnea. No orthopnea. No lightheadedness or dizziness. No syncopal episodes. Abdominal: No abdominal pain. No nausea, vomiting. No diarrhea. No constipation. No bloody or tarry stools.. No loss of appetite. Genitourinary: No dysuria, increased frequency, urgency. No urinary retention. Musculoskeletal: No myalgias. No muscle weakness, no gait dysfunction, no frequent falls. No back pain. No neck pain. Integumentary: No wounds, no lesions. No rash or pruritus. No unusual bruising. No change in hair or nails. Neurologic: No aphasia. No facial droop. No change in mentation. No head injury. No headache. No paralysis. No paresthesia. Psychiatric: No depression. No anxiety. No mood swings. Endocrine: No abnormal blood sugars. No weight change. No excessive sweating or thirst. No cold intolerance. PHYSICAL EXAMINATION Gen: This is a 69-year-old male. He is resting in recliner and appears to be comfortable and in no acute distress. HEENT: Head is atraumatic, normocephalic. Pupils equal, round. Sclerae is anicteric. NECK: Supple. No JVD. No lymphadenopathy. No thyromegaly. LUNGS: Diminished and crackles bilaterally. No intercostal retractions. No accessory muscle usage. Positive hemoptysis. HEART: Regular rate and rhythm. No murmur. ABDOMEN: Soft. Bowel sounds are present. No masses. No tenderness. EXTREMITIES: No pedal edema. No calf tenderness. Dorsalis pedis +2 bilaterally. NEUROLOGICAL: Patient is awake, alert and oriented x3. Cranial nerves 2 through 12 are grossly intact. ASSESSMENT AND PLAN 1. Acute on chronic hypoxic respiratory failure secondary to Covid 19 pneumonia. Continue Remdesivir will be completed today, solu-medrol 60 mg every 6 hours, Ventolin inhaler 4 times daily, vitamin supplements, oxygen therapy prn, consult with pulmonary medicine appreciated. Patient is off oxygen. 2. Hemoptysis since July. CAT scan as above. Pulmonary consult. 3. Mild intermittent asthma, stable. Continue Ventolin inhaler as needed. 4. Diabetes mellitus type 2. Resume metformin 1000 mg daily. Continue NovoLog scale before meals and at bedtime, increase Levemir to 20 units twice daily, No voLog 8 units with meals. 5. Diabetic neuropathy. Continue gabapentin 300 mg 3 times daily. 6. Hypertension. Continue amlodipine 10 mg at bedtime, Lasix 10 mg daily, Cozaar 50 mg daily, Lopressor 50 mg at bedtime, hydralazine 100 mg twice daily added. 6. Hyperlipidemia. 7. Chronic lumbar pain under the care of pain management in [place]. Continue Flexeril 5 mg every 6 hours as needed, Neurontin, [place] 10 one every 4 hours as needed. 8. Chronic gout. Continue allopurinol 300 mg at bedtime. 9. Recurrent depression. Continue Celexa 20 mg daily. 10. Benign prostatic hypertrophy. Continue Cardura 4 mg twice daily. 11. GI prophylaxis. Protonix oral daily. 12. DVT prophylaxis. Heparin hold due to hemoptysis. SCDs and PATEL hargrove. DISCHARGE PLAN Return to [facility] under the care of Dr. Dave on Saturday. Impression and plan of care have been directed as dictated by the signing physician. Yumiko Morley nurse practitioner acting as scribe for signing physician. Objective - Vital Signs Vital signs: Vital Signs Temp 97.6 F 09/12/20 09:43 Pulse 61 09/12/20 09:43 Resp 18 09/12/20 09:43 BP 170/79 09/12/20 09:43 Pulse Ox 96 09/12/20 09:43 Intake & Output 09/11/20 09/12/20 09/12/20 18:59 06:59 18:59 Output Total 2 Balance -2 Output: Urine 2 Other: Voiding Method Toilet Toilet Urinal Urinal # Voids 1 # Bowel Movements 1 - Labs CBC & Chem 7: 09/13/20 06:09 09/10/20 06:06 Labs: Abnormal Lab Results - Last 24 Hours (Table) 09/11/20 09/11/20 09/11/20 Range/Units 11:56 16:48 20:37 POC Glucose (mg/dL) 359 H 356 H 388 H (75-99) mg/dL 09/12/20 09/12/20 Range/Units 04:40 07:21 POC Glucose (mg/dL) 318 H 356 H (75-99) mg/dL Microbiology - Last 24 Hours (Table) 09/10/20 16:59 Gram Stain - Preliminary Sputum Sputum Culture - Preliminary
[2020-09-13] MEDS: SODIUM CHLORIDE 0.9% 1,000 ML IV SCH (13:47)
--- NOTE | 2020-09-13 14:34 | PN ---
PROGRESS NOTE DATE OF SERVICE: 09/13/2020 REASON FOR FOLLOWUP: Pneumonia. INTERVAL HISTORY: The patient is currently afebrile. The patient is breathing comfortably on room air. The patient denies having any chest pain or shortness of breath. He continued to have a cough and bringing up some sputum. No hemoptysis. No vomiting. No abdominal pain or diarrhea. PHYSICAL EXAMINATION: Blood pressure 179/92 with a pulse of 72, temperature is 97.7. He is 94% on room air. General description is an elderly male up in the chair in no distress. RESPIRATORY SYSTEM: Unlabored breathing, decreased intensity of breath sounds. No wheeze. HEART: S1, S2. Regular rate and rhythm. ABDOMEN: Soft, no tenderness. LABS: Hemoglobin is 11.1, white count 7.98. Urine has been negative. DIAGNOSTIC IMPRESSION AND PLAN: Patient with acute COVID-19 pneumonia in this patient who has shown overall clinical improvement with current treatment protocol of the remdesivir, patient has completed his 5-day course; on Solu-Medrol, vitamin C, zinc to continue and monitor his clinical course closely. Continue supportive care. MMODL / IJN: [id number] /
[2020-09-13] MEDS: methylPREDNISolone SOD SUCCI 40 MG/ML 1 ML VIAL IV SCH (16:49)
[2020-09-13 16:52] LABS: Glucose,Whole Blood 260 mg/dL (75-99)
[2020-09-13 19:44] LABS: African American GFR (CKD) 89.2 (60.0-200.0); Anion Gap 11.5 mmol/L (4.00-12.00); C Reactive Protein 2.3 mg/dL (0.0-0.8); Calcium 8.7 mg/dL (8.7-10.3); Carbon Dioxide 23.5 mmol/L (21.6-31.8)
[2020-09-13 20:07] LABS: Glucose,Whole Blood 319 mg/dL (75-99)
[2020-09-13] MEDS: allopurinoL 300 MG TAB PO SCH (21:48)
[2020-09-13] MEDS: ZOLPIDEM 10 MG TAB PO PRN (21:50)
[2020-09-13] MEDS: amLODIPine 10 MG TAB PO SCH (21:50)
[2020-09-13] MEDS: METOPROLOL TARTRATE 50 MG TAB PO SCH (21:50)
[2020-09-14 00:49] LABS: Glucose,Whole Blood 242 mg/dL (75-99)
[2020-09-14] MEDS: methylPREDNISolone SOD SUCCI 40 MG/ML 1 ML VIAL IV SCH ×2 (00:51→08:07)
[2020-09-14] MEDS: PIPERACILLIN-TAZOBACTAM 3.375 GM in SODIUM CHLORIDE 0.9% 100 ML IVPB SCH ×3 (00:51→16:09)
[2020-09-14] MEDS: INSULIN ASPART (NovoLOG) 100 UNIT/ML VIAL SQ SCH ×9 (00:52→20:41)
[2020-09-14 02:00] LABS: Glucose,Whole Blood 241 mg/dL (75-99)
[2020-09-14 03:37] LABS: Glucose,Whole Blood 206 mg/dL (75-99)
[2020-09-14] MEDS: HYDROcodone/APAP 10-325MG 1 EACH TAB PO PRN ×4 (03:38→16:11)
[2020-09-14 06:45] LABS: Glucose,Whole Blood 175 mg/dL (75-99)
[2020-09-14] MEDS: DOXAZOSIN 4 MG TAB PO SCH ×2 (08:04→16:09)
[2020-09-14] MEDS: CHOLECALCIFEROL 25 MCG (1000 IU) TABLET PO SCH (08:04)
[2020-09-14] MEDS: hydrALAZINE HCL 50 MG TAB PO SCH ×3 (08:04→20:40)
[2020-09-14] MEDS: CYCLOBENZAPRINE 5 MG TAB PO PRN (08:05)
[2020-09-14] MEDS: ASCORBIC ACID 500 MG TAB PO SCH (08:05)
[2020-09-14] MEDS: ZINC SULFATE 220 MG CAP PO SCH (08:05)
[2020-09-14] MEDS: HEPARIN SODIUM,PORCINE/PF 5,000 UNIT/0.5 ML SYRINGE SQ SCH ×2 (08:06→20:41)
[2020-09-14] MEDS: metFORMIN 500 MG TAB PO SCH ×2 (08:06→16:10)
[2020-09-14] MEDS: GABAPENTIN 300 MG CAP PO SCH ×3 (08:07→20:40)
[2020-09-14] MEDS: INSULIN DETEMIR (LEVEMIR) 100 UNIT/ML SYR SQ SCH ×2 (08:07→20:41)
[2020-09-14] MEDS: LOSARTAN 50 MG TAB PO SCH (08:07)
[2020-09-14] MEDS: PANTOPRAZOLE 40 MG TABLET PO SCH (08:07)
[2020-09-14] MEDS: CITALOPRAM HYDROBROMIDE 20 MG TAB PO SCH (08:07)
[2020-09-14] MEDS: FUROSEMIDE 10 MG TAB PO SCH (08:07)
[2020-09-14] MEDS: ALBUTEROL HFA INHALER INHALATION SCH ×4 (08:27→21:55)
--- NOTE | 2020-09-14 09:30 | P.DS ---
Providers Date of admission: 09/08/20 12:58 Expected date of discharge: 09/14/20 Attending physician: Linda Dave Consults: 09/08/20 12:42 Consult Physician Routine Consulting Provider: Misael Pierce Consult Reason/Comments: covid, hypoxic Do you want consulting provider notified?: Yes 09/09/20 13:02 Consult Physician Routine Consulting Provider: Cheryl Mcghee Consult Reason/Comments: infection Do you want consulting provider notified?: Already Contacted Primary care physician: Linda Dave [facility] Course: HISTORY OF PRESENT ILLNESS This is a 69-year-old male patient of Dr. Dave at [facility] with past medical history of asthma, diabetes mellitus type 2, diabetic neuropathy, hypertension, hyperlipidemia, chronic lumbar pain under the care of pain management in [facility]. Patient gives history that for 5-6 weeks he has had hemoptysis. He was previously at [facility] in [place]. Patient apparently developed symptoms of Covid and on September 01 was tested and came back positive. Patient states that all the residents became positive and the facility was shut down and he was transferred to [facility] for rehab. Patient complains of cough, no fever or chills. He states he had workup done at [facility] in [facility] on September 05 and at that time was also started on steroids for back pain. He has been spitting up blood since that time. He also has history of asthma. He denies use of home oxygen, nebulizers or CPAP. Patient presented to [facility] emergency center for evaluation and found to have pulse ox is 94% on 4 L nasal cannula, afebrile, heart rate 68, blood pressure 129/80. EKG sinus rhythm. WBC 4.7, hemoglobin 10.8, platelet count 238. Electrolytes were all normal, BUN 31 creatinine 1.15. Blood sugar 138. D-dimer 1.14. C-reactive protein 19.8. Troponin negative. Chest x-ray consistent with Covid [address] angiogram of the chest revealed no pulmonary embolism. Bilateral multifocal groundglass opacities and organizing consolidations with thoracic adenopathy consistent with Covid 19 infection. Patient was started on Decadron, and azithromycin and admitted to the Med[facility] floor. Consult in place with pulmonary medicine. We have ordered Remdesivir. 09/10: Patient's breathing status has been stable with pulse ox of 96% on 3 L nasal cannula. He has been afebrile, heart rate 63, blood pressure 118/71. Patient has been seen by Dr. Pierce. Heparin subcu is on hold due to hemoptysis. No worsening and hemoptysis today. Blood sugars are running between 166 and 368 . Repeat blood work reveals WBC 6.1, hemoglobin 10, platelet count 311. Electrolytes normal. BUN 31 creatinine 1. Liver function tests are normal. Covid antibody total reactive. 09/11: Patient is off oxygen and pulse ox is 97% on room air. He states his breathing status is much improved. Less hemoptysis. He has been afebrile, heart rate 53, blood pressure 164/95 and Lopressor will be increased to 100 mg daily. Anticipate discharge back to [facility] tomorrow. He is on Remdesivir day #07/25. 09/12: Patient's blood sugars have been running in the 300s and insulin was increased to Levemir 15 units twice daily and NovoLog 5 units scheduled with each meal along with insulin scale which will be continued at the residential. Blood pressure is also high despite changing losartan to 100 mg yesterday. Hydralazine 50 mg twice daily will be added. Blood pressure is currently 170/79, heart rate 61, afebrile, pulse ox 96% on room air. Breathing status remained stable. Patient is finishing up Remdesivir today. Dr. Pierce would like to keep the patient until Saturday. 09/13: Patient's breathing status continues to improve gradually on a daily basis. He remains on IV Solu-Medrol and IV antibiotics in form of Zosyn. Patient has been afebrile, heart rate 72, blood pressure 179/92, pulse ox 94% on room air. Repeat blood work reveals WBC 7.8, hemoglobin 0.1, platelet count 277. D-dimer 1.17. Blood sugars are still running in the 200s. Pro-calcitonin 0.07. Hydralazine increased to 100 mg twice daily and insulin changed to Levemir 20 units twice daily and NovoLog increased to 8 units scheduled with meals. 09/14: Patient denies shortness of breath. He continues to have elevated blood pressure and blood sugar and additional changes have been made. We are transitioning to oral prednisone. Anticipate blood sugars will improve significantly. Patient has been afebrile, heart rate 67, blood pressure 183/89, pulse ox 94% on room air. Blood sugars are running between [address] Pierce has recommended Augmentin for 7 day course and prednisone 40 mg for 5 days. Patient will be discharged back to [facility] today in stable condition. ASSESSMENT AND PLAN 1. Acute on chronic hypoxic respiratory failure secondary to Covid 19 pneumonia. 2. Hemoptysis since July. 3. Mild intermittent asthma, stable. 4. Diabetes mellitus type 2, uncontrolled with hyperglycemia secondary to steroids. 5. Diabetic neuropathy. 6. Hypertension. 7. Hyperlipidemia. 8. Chronic lumbar pain under the care of pain management in [place]. 9. Chronic gout. 10. Recurrent depression. 11. Benign prostatic hypertrophy. DISCHARGE PLAN Return to [facility] under the care of Dr. Dave. Impression and plan of care have been directed as dictated by the signing physician. Yumiko Morley nurse practitioner acting as scribe for signing physician. Patient Condition at Discharge: Good Plan - Discharge Summary Discharge Rx Participant: No New Discharge Prescriptions: New Zinc Sulfate [Orazinc] 220 mg PO DAILY cap Pantoprazole [Protonix] 40 mg PO AC-BRKFST tablet. Ascorbic Acid [Vitamin C] 1,000 mg PO DAILY tab Amoxicillin/Potassium Clav [Augmentin 875-125 Tablet] 1 tab PO BID 7 Days #14 tab predniSONE [Deltasone] 40 mg PO DAILY 5 Days #10 tab Insulin Detemir (Levemir) [Levemir] 20 unit SQ DAILY@0700 syr INSULIN ASPART (NovoLOG) [NovoLOG (formulary)] 0 unit SQ ACHS vial Losartan [Cozaar] 100 mg PO DAILY tab Cholecalciferol [Vitamin D3 (25 Mcg = 1000 Iu)] 50 mcg PO DAILY tablet hydrALAZINE HCL [Apresoline] 100 mg PO TID tab hydrALAZINE HCL [Apresoline] 50 mg PO Q6H PRN #30 tab Insulin Detemir (Levemir) [Levemir] 20 unit SQ HS syr INSULIN ASPART (NovoLOG) [NovoLOG (formulary)] 8 unit SQ AC-TID vial Continue Cyclobenzaprine [Flexeril] 5 mg PO Q6H PRN PRN Reason: Muscle Spasm Albuterol Sulfate [Proventil Hfa] 2 puff INHALATION RT-QID Sodium Chloride [Saline Nasal [place]] 1 spray EA NOSTRIL BID@0900,2099 Furosemide [Lasix] 10 mg PO DAILY@0900 Citalopram Hydrobromide [CeleXA] 20 mg PO DAILY@0900 Gabapentin [Neurontin] 300 mg PO TID@0900,1300,2099 #9 cap Allopurinol [Zyloprim] 300 mg PO HS@2099 Acetaminophen Tab [Tylenol] 650 mg PO Q4H PRN PRN Reason: Fever metFORMIN HCL [Glucophage] 1,000 mg PO BID@0900,1700 Doxazosin [Cardura] 4 mg PO BID@0900,1700 amLODIPine [Norvasc] 10 mg PO HS Metoprolol Tartrate [Lopressor] 50 mg PO HS@2099 Zolpidem [Ambien] 10 mg PO HS PRN #3 tab PRN Reason: Insomnia HYDROcodone/APAP 10-325MG [[place] 10-325] 1 tab PO Q4H PRN #18 tab PRN Reason: Pain Discontinued Insulin Lispro [humaLOG Kwikpen] See Protocol SQ ACHS Insulin Glargine,Hum.rec.anlog [Semglee Pen] 10 units SQ DAILY@0900 Losartan [Cozaar] 50 mg PO DAILY@0900 Discharge Medication List Acetaminophen Tab [Tylenol] 650 mg PO Q4H PRN 09/08/20 [History] Albuterol Sulfate [Proventil Hfa] 2 puff INHALATION RT-QID 09/08/20 [History] Allopurinol [Zyloprim] 300 mg PO HS@209909/08/20 [History] Citalopram Hydrobromide [CeleXA] 20 mg PO DAILY@89909/08/20 [History] Cyclobenzaprine [Flexeril] 5 mg PO Q6H PRN 09/08/20 [History] Doxazosin [Cardura] 4 mg PO BID@0900,1700 09/08/20 [History] Furosemide [Lasix] 10 mg PO DAILY@0909/08/20 [History] Metoprolol Tartrate [Lopressor] 50 mg PO HS@209909/08/20 [History] Sodium Chloride [Saline Nasal [place]] 1 spray EA NOSTRIL BID@0900,209909/08/20 [History] amLODIPine [Norvasc] 10 mg PO HS 09/08/20 [History] metFORMIN HCL [Glucophage] 1,000 mg PO BID@0900,1700 09/08/20 [History] Ascorbic Acid [Vitamin C] 1,000 mg PO DAILY tab 09/12/20 [Rx] Cholecalciferol [Vitamin D3 (25 Mcg = 1000 Iu)] 50 mcg PO DAILY tablet 09/12/20 [Rx] Gabapentin [Neurontin] 300 mg PO TID@0900,1300,2100 #9 cap 09/12/20 [Rx] HYDROcodone/APAP 10-325MG [[place] 10-325] 1 tab PO Q4H PRN #18 tab 09/12/20 [Rx] Losartan [Cozaar] 100 mg PO DAILY tab 09/12/20 [Rx] Pantoprazole [Protonix] 40 mg PO AC-BRKFST tablet. 09/12/20 [Rx] Zinc Sulfate [Orazinc] 220 mg PO DAILY cap 09/12/20 [Rx] Zolpidem [Ambien] 10 mg PO HS PRN #3 tab 09/12/20 [Rx] Amoxicillin/Potassium Clav [Augmentin 875-125 Tablet] 1 tab PO BID 7 Days #14 tab 09/14/20 [Rx] INSULIN ASPART (NovoLOG) [NovoLOG (formulary)] 0 unit SQ ACHS vial 09/14/20 [Rx] INSULIN ASPART (NovoLOG) [NovoLOG (formulary)] 8 unit SQ AC-TID vial 09/14/20 [Rx] Insulin Detemir (Levemir) [Levemir] 20 unit SQ DAILY@0700 syr 09/14/20 [Rx] Insulin Detemir (Levemir) [Levemir] 20 unit SQ HS syr 09/14/20 [Rx] hydrALAZINE HCL [Apresoline] 50 mg PO Q6H PRN #30 tab 09/14/20 [Rx] hydrALAZINE HCL [Apresoline] 100 mg PO TID tab 09/14/20 [Rx] predniSONE [Deltasone] 40 mg PO DAILY 5 Days #10 tab 09/14/20 [Rx] Follow up Appointment(s)/Referral(s): Linda Dave MD [Primary Care Provider] - 1 Week (at Misael Fraga MD [STAFF PHYSICIAN] - 09/30/20 1:15 pm Patient Instructions/Handouts: Coronavirus Disease 2019 (COVID-19) Activity/Diet/Wound Care/Special Instructions: Meals on Wheels #[phone] Discharge Disposition: TRANSFER TO SNF/ECF
--- NOTE | 2020-09-14 11:00 | P.PN ---
Subjective Progress Note Date: 09/14/20 Principal diagnosis: Hemoptysis ongoing chronic for last 4 weeks evaluated for secondary bacterial pneumonia Covid 19 pneumonia Acute hypoxic respirator failure Morbid obesity and sleep disorder breathing and sleep apnea Type 2 diabetes mellitus Diabetic neuropathy Hypertension hypertensive cardiovascular disease Chronic lumbar pain Chronic gout Depression BPH 09/14/2020, patient seen eval examined during the rounds labs reviewed medications reviewed care plan discussed with the patient hemoptysis essentially resolved, no active bleeding is seen, phlegm is grayish in color once in a while patient has old blood with brown discoloration of the phlegm, hemoglobin r emained stable, Estrace status stable and continued to improve, patient is afebrile oxygen saturation is 94% hemodynamic status stable, blood pressure slightly higher side, agree with discharge planning on oral antibiotics and tapering steroids as discussed with primary service 09/13/2020, patient seen eval examined during the rounds labs reviewed medications reviewed from E[place] status remains stable breathing comfortably denies any chest pain, hemoptysis significantly improved on the occasional streak of old blood have been seen mostly its san phlegm now, sputum culture results are back normal respiratory candace is seen, given the improvement in clinical condition on current therapy and we'll continue it for now however patient can be discharged to extended care facility in next 24 hours on oral Augmentin and oral prednisone would recommend Augmentin 875 twice a day for 1 week and prednisone 40 mg daily for 1 week as well would recommend follow-up in office in about 2-4 weeks, early if need arises 09/12/2020, patient seen eval examined during the rounds labs reviewed medications reviewed hemoptysis better now still have some old blood, patient is running high sugars and blood pressure, patient will likely need IV steroids seems to be helping diffuse lung disease and hemoptysis, sputum culture results are pending polymicrobial smears was positive on Gram stain awaiting final ID in the meantime continue Zosyn and vancomycin and IV steroids 09/11/2020, patient sitting upright on the bed breathing comfortably cuff chest pain or shortness breath slightly better, hemoptysis still present but improved though it comes on old blood with deep coughing, no fresh blood has been noted, patient remains on IV Zosyn antibiotics and breathing treatments also therapy for Covid 19 pneumonia, sputum culture results are pending many gram-negative rods as well as gram-positive cocci were seen 09/10/2020, patient seen eval examined during the rounds labs reviewed medications reviewed, patient is doing slightly better breathing improved but however still have coughing with hemoptysis however its old blood with stable hemoglobin no overt hemoptysis however has been noted, sputum studies are being sent, on 3 L nasal cannula, oxygen saturation remained stable 96-97%, at times it does drop down 79%, will DC dexamethasone put patient on IV steroids, in addition we'll start IV Zosyn also pending sputum studies Patient is a 69-year-old male resident of [facility] due to her chronic back problem was undergoing short-term rehab patient came back positive for Crohn a virus 5 days ago, developed shortness of breath requiring supplemental oxygen came into the hospital for further evaluation and treatment, patient did receive both doses of vaccine back in May and June, patient has been having hemoptysis for last 4 weeks off and on on arrival oxygen saturation was noted to be 89%, BUN/creatinine is 31 and 1.15, Patient apparently developed symptoms of Covid and on September 01 was tested and came back positive. Patient states that all the residents became positive and the facility was shut down and he was transferred to [facility] for rehab. Patient complains of cough, no fever or chills. He states he had workup done at [facility] in [facility] on September 05 and at that time was also started on steroids for back pain. He has been spitting up blood since that time. He also has history of asthma. He denies use of home oxygen, nebulizers or CPAP. Patient presented to [facility] emergency center for evaluation and found to have pulse ox is 94% on 4 L nasal cannula, afebrile, heart rate 68, blood pressure 129/80. EKG sinus rhythm. WBC 4.7, hemoglobin 10.8, platelet count 238. Electrolytes were all normal, BUN 31 creatinine 1.15. Blood sugar 138. D-dimer 1.14. C-reactive protein 19.8. Troponin negative. Chest x-ray consistent with Covid [address] angiogram of the chest revealed no pulmonary embolism. Bilateral multifocal groundglass opacities and organizing consolidations with thoracic adenopathy consistent with Covid 19 infection. Patient was started on Decadron, and azithromycin and Remdesivir. Patient chest x-ray revealed bilateral interstitial infiltrate consistent with COVID-19 pneumonia, computed tomography scan of the chest confirmed above finding however no central prominent pulmonary embolism noted Review of the data revealed that patient has prior medical history of chronic persistent asthma, diabetes mellitus type 2, diabetic neuropathy hypertension hypertensive cardiovascular disease chronic lumbar pain, Objective - Vital Signs Vital signs: Vital Signs Temp 97.8 F 09/14/20 09:39 Pulse 67 09/14/20 09:39 Resp 17 09/14/20 09:39 BP 183/89 09/14/20 09:39 Pulse Ox 94 L 09/14/20 09:39 Intake & Output 09/13/20 09/14/20 09/14/20 18:59 06:59 18:59 Intake Total 1590 100 Balance 1590 100 Intake: Intake, IV Titration 510 100 Amount Piperacillin-Tazobactam 3 100 100 .375 gm In Sodium Chloride 0.9% 100 ml @ 25 mls/hr IVPB Q8H [facility]KA Rx#: [id number] Remdesivir 100 mg In 250 Sodium Chloride 0.9% 250 ml @ 250 mls/hr IVPB Q24H [facility] Rx#:[id number] Sodium Chloride 0.9% 1, 160 000 ml @ 20 mls/hr IV . Q24H [facility]KA Rx#:[id number] Oral 1080 Other: Voiding Method Toilet Urinal # Voids 3 # Bowel Movements 1 - Exam - Constitutional General appearance: cooperative, disheveled, morbidly obese - EENT Eyes: EOMI, PERRLA Ears: bilateral: normal - Neck Carotids: bilateral: upstroke normal Thyroid: bilateral: normal size - Respiratory Respiratory: bilateral: diminished, rhonchi - Cardiovascular Rhythm: regular Heart sounds: normal: S1, S2 - Gastrointestinal General gastrointestinal: distended, soft - Integumentary Integumentary: normal turgor - Neurologic Neurologic: CNII-XII intact - Musculoskeletal Musculoskeletal: gait normal, generalized weakness, strength equal bilaterally - Psychiatric Psychiatric: A&O x's 3, appropriate affect, intact judgment & insight - Labs CBC & Chem 7: 09/13/20 06:09 09/13/20 06:09 Labs: Abnormal Lab Results - Last 24 Hours (Table) 09/13/20 09/13/20 09/13/20 Range/Units 06:09 11:28 16:51 BUN 34.0 H (9.0-27.0) mg/dL BUN/Creatinine Ratio 34.00 H (12.00-20.00) Ratio Glucose 244 H (70-110) mg/dL POC Glucose (mg/dL) 270 H 260 H (75-99) mg/dL Lactate Dehydrogenase 264 H (120-246) U/L C-Reactive Protein 2.3 H (0.0-0.8) mg/dL 09/13/20 09/14/20 09/14/20 Range/Units 20:05 00:39 01:59 BUN (9.0-27.0) mg/dL BUN/Creatinine Ratio (12.00-20.00) Ratio Glucose (70-110) mg/dL POC Glucose (mg/dL) 319 H 242 H 241 H (75-99) mg/dL Lactate Dehydrogenase (120-246) U/L C-Reactive Protein (0.0-0.8) mg/dL 09/14/20 09/14/20 Range/Units 03:35 06:44 BUN (9.0-27.0) mg/dL BUN/Creatinine Ratio (12.00-20.00) Ratio Glucose (70-110) mg/dL POC Glucose (mg/dL) 206 H 175 H (75-99) mg/dL Lactate Dehydrogenase (120-246) U/L C-Reactive Protein (0.0-0.8) mg/dL Assessment and Plan Assessment: Hemoptysis ongoing chronic for last 4 weeks evaluated for secondary bacterial pneumonia, sputum results reviewed, progressively getting better Covid 19 pneumonia Acute hypoxic respirator failure Morbid obesity and sleep disorder breathing and sleep apnea Type 2 diabetes mellitus Diabetic neuropathy Hypertension hypertensive cardiovascular disease Chronic lumbar pain Chronic gout Depression BPH Plan: Patient to be continued on Zosyn with and IV Solu-Medrol , discussed with primary service about antibiotics and steroids, to be continued on patient basis Reviewed sputum studies Status post REMdesivir Continue heparin 5000 units every 12 hourly Further plan of care as per clinical response of the patient will follow closely, Agree with discharge planning and follow-up on outpatient basis Time with Patient: Greater than 30
[2020-09-14 11:41] LABS: Glucose,Whole Blood 177 mg/dL (75-99)
[2020-09-14] MEDS: SODIUM CHLORIDE 0.9% 1,000 ML IV SCH (13:44)
[2020-09-14 14:18] VITALS: BMI 43.2
[2020-09-14] MEDS ORDERED: hydrALAZINE HCL 50 MG TAB PO PRN (15:16)
--- NOTE | 2020-09-14 15:18 | P.PN ---
Subjective Progress Note Date: 09/14/20 HISTORY OF PRESENT ILLNESS This is a 69-year-old male patient of Dr. Dave at [facility] with past medical history of asthma, diabetes mellitus type 2, diabetic neuropathy, hypertension, hyperlipidemia, chronic lumbar pain under the care of pain management in [facility]. Patient gives history that for 5-6 weeks he has had hemoptysis. He was previously at [facility] in [place]. Patient apparently developed symptoms of Covid and on September 01 was tested and came back positive. Patient states that all the residents became positive and the facility was shut down and he was transferred to [facility] for rehab. Patient complains of cough, no fever or chills. He states he had workup done at [facility] in [facility] on September 05 and at that time was also started on steroids for back pain. He has been spitting up blood since that time. He also has history of asthma. He denies use of home oxygen, nebulizers or CPAP. Patient presented to [facility] emergency center for evaluation and found to have pulse ox is 94% on 4 L nasal cannula, afebrile, heart rate 68, blood pressure 129/80. EKG sinus rhythm. WBC 4.7, hemoglobin 10.8, platelet count 238. Electrolytes were all normal, BUN 31 creatinine 1.15. Blood sugar 138. D-dimer 1.14. C-reactive protein 19.8. Troponin negative. Chest x-ray consistent with Covid [address] angiogram of the chest revealed no pulmonary embolism. Bilateral multifocal groundglass opacities and organizing consolidations with thoracic adenopathy consistent with Covid 19 infection. Patient was started on Decadron, and azithromycin and admitted to the [facility] floor. Consult in place with pulmonary medicine. We have ordered Remdesivir. 09/10: Patient's breathing status has been stable with pulse ox of 96% on 3 L nasal cannula. He has been afebrile, heart rate 63, blood pressure 118/71. Mike granda has been seen by Dr. Pierce. Heparin subcu is on hold due to hemoptysis. No worsening and hemoptysis today. Blood sugars are running between 166 and 368. Repeat blood work reveals WBC 6.1, hemoglobin 10, platelet count 311. Electrolytes normal. BUN 31 creatinine 1. Liver function tests are normal. Covid antibody total reactive. 5/23: Patient is off oxygen and pulse ox is 97% on room air. He states his breathing status is much improved. Less hemoptysis. He has been afebrile, hear t rate 53, blood pressure 164/95 and Lopressor will be increased to 100 mg daily. Anticipate discharge back to [facility] tomorrow. He is on Remdesivir day #4/5. 09/12: Patient's blood sugars have been running in the 300s and insulin was increased to Levemir 15 units twice daily and NovoLog 5 units scheduled with each meal along with insulin scale which will be continued at the retirement. Blood pressure is also high despite changing losartan to 100 mg yesterday. Hydralazine 50 mg twice daily will be added. Blood pressure is currently 170/79, heart rate 61, afebrile, pulse ox 96% on room air. Breathing status remained stable. Patient is finishing up Remdesivir today. Dr. Pierce would like to keep the patient until Saturday. 09/13: Patient's breathing status continues to improve gradually on a daily basis. He remains on IV Solu-Medrol and IV antibiotics in form of Zosyn. Patient has been afebrile, heart rate 72, blood pressure 179/92, pulse ox 94% on room air. Repeat blood work reveals WBC 7.8, hemoglobin 0.1, platelet count 277. D-dimer 1.17. Blood sugars are still running in the 200s. Pro-calcitonin 0.07. Hydralazine increased to 100 mg twice daily and insulin changed to Levemir 20 units twice daily and NovoLog increased to 8 units scheduled with meals. 09/14: Patient denies shortness of breath. He continues to have elevated blood pressure and blood sugar and additional changes have been made. We are transitioning to oral prednisone. Anticipate blood sugars will improve significantly. Patient has been afebrile, heart rate 67, blood pressure 183/89, pulse ox 94% on room air. Blood sugars are running between [address] Pierce has recommended Augmentin for 7 day course and prednisone 40 mg for 5 days. Patient will be discharged back to [facility] today in stable condition. Discharge plan has changed. Patient is now going to return to [facility] and private pay. They are not able to take the patient until tomorrow so patient's discharge will be delayed until tomorrow morning. REVIEW OF SYSTEMS Constitutional: Denies fever, no chills, no night sweats. No weight change. No weakness, fatigue or lethargy. No daytime sleepiness. EENT: No headache. No blurred vision or double vision, no loss of vision. No loss of Hearing, no ringing in the ears, no dizziness. No nasal drainage or congestion. No epistaxis. No sore throat. Lungs: Reports shortness of breath, reports cough, reports sputum production. No wheezing. Reports hemoptysis. Cardiovascular: No chest pain, no lower extremity edema. No palpitations. No paroxysmal nocturnal dyspnea. No orthopnea. No lightheadedness or dizziness. No syncopal episodes. Abdominal: No abdominal pain. No nausea, vomiting. No diarrhea. No constipa tion. No bloody or tarry stools.. No loss of appetite. Genitourinary: No dysuria, increased frequency, urgency. No urinary retention. Musculoskeletal: No myalgias. No muscle weakness, no gait dysfunction, no frequent falls. No back pain. No neck pain. Integumentary: No wounds, no lesions. No rash or pruritus. No unusual bruising. No change in hair or nails. Neurologic: No aphasia. No facial droop. No change in mentation. No head injury. No headache. No paralysis. No paresthesia. Psychiatric: No depression. No anxiety. No mood swings. Endocrine: No abnormal blood sugars. No weight change. No excessive sweating or thirst. No cold intolerance. PHYSICAL EXAMINATION Gen: This is a 69-year-old male. He is resting in recliner and appears to be comfortable and in no acute distress. HEENT: Head is atraumatic, normocephalic. Pupils equal, round. Sclerae is anicteric. NECK: Supple. No JVD. No lymphadenopathy. No thyromegaly. LUNGS: Diminished and crackles bilaterally. No intercostal retractions. No accessory muscle usage. Positive hemoptysis. HEART: Regular rate and rhythm. No murmur. ABDOMEN: Soft. Bowel sounds are present. No masses. No tenderness. EXTREMITIES: No pedal edema. No calf tenderness. Dorsalis pedis +2 bilaterally. NEUROLOGICAL: Patient is awake, alert and oriented x3. Cranial nerves 2 through 12 are grossly intact. ASSESSMENT AND PLAN 1. Acute on chronic hypoxic respiratory failure secondary to Covid 19 pneumonia. Continue Remdesivir will be completed, solu-medrol to prednisone, Ventolin inhaler 4 times daily, vitamin supplements, oxygen therapy prn, consult with pulmonary medicine appreciated. Patient is off oxygen. 2. Hemoptysis since July. CAT scan as above. Pulmonary consult. 3. Mild intermittent asthma, stable. Continue Ventolin inhaler as needed. 4. Diabetes mellitus type 2. Resume metformin 1000 mg daily. Continue NovoLog scale before meals and at bedtime, increase Levemir to 20 units twice daily, NovoLog 8 units with meals. 5. Diabetic neuropathy. Continue gabapentin 300 mg 3 times daily. 6. Hypertension. Continue amlodipine 10 mg at bedtime, Lasix 10 mg daily, Cozaar 50 mg daily, Lopressor 50 mg at bedtime, hydralazine 100 mg twice daily added. 6. Hyperlipidemia. 7. Chronic lumbar pain under the care of pain management in [place]. Continue Flexeril 5 mg every 6 hours as needed, Neurontin, Anabel 10 one every 4 hours as needed. 8. Chronic gout. Continue allopurinol 300 mg at bedtime. 9. Recurrent depression. Continue Celexa 20 mg daily. 10. Benign prostatic hypertrophy. Continue Cardura 4 mg twice daily. 11. GI prophylaxis. Protonix oral daily. 12. DVT prophylaxis. Heparin hold due to hemoptysis. SCDs and PATEL jhonatane. DISCHARGE PLAN [facility]. Impression and plan of care have been directed as dictated by the signing physician. Yumiko Morley nurse practitioner acting as scribe for signing physician. Objective - Vital Signs Vital signs: Vital Signs Temp 97.8 F 09/14/20 13:55 Pulse 76 09/14/20 13:55 Resp 17 09/14/20 13:55 BP 165/87 09/14/20 13:55 Pulse Ox 92 L 09/14/20 13:55 Intake & Output 09/13/20 09/14/20 09/14/20 18:59 06:59 18:59 Intake Total 1590 100 Balance 1590 100 Weight 140.614 kg Intake: Intake, IV Titration 510 100 Amount Piperacillin-Tazobactam 3 100 100 .375 gm In Sodium Chloride 0.9% 100 ml @ 25 mls/hr IVPB Q8H [facility] Rx#: [id number] Remdesivir 100 mg In 250 Sodium Chloride 0.9% 250 ml @ 250 mls/hr IVPB Q24H [facility] Rx#:[id number] Sodium Chloride 0.9% 1, 160 000 ml @ 20 mls/hr IV . Q24H [facility] Rx#:[id number] Oral 1080 Other: Voiding Method Toilet Urinal # Voids 3 # Bowel Movements 1 - Labs CBC & Chem 7: 09/13/20 06:09 09/13/20 06:09 Labs: Abnormal Lab Results - Last 24 Hours (Table) 09/13/20 09/13/20 09/13/20 Range/Units 06:09 16:51 20:05 BUN 34.0 H (9.0-27.0) mg/dL BUN/Creatinine Ratio 34.00 H (12.00-20.00) Ratio Glucose 244 H (70-110) mg/dL POC Glucose (mg/dL) 260 H 319 H (75-99) mg/dL Lactate Dehydrogenase 264 H (120-246) U/L C-Reactive Protein 2.3 H (0.0-0.8) mg/dL 09/14/20 09/14/20 09/14/20 Range/Units 00:39 01:59 03:35 BUN (9.0-27.0) mg/dL BUN/Creatinine Ratio (12.00-20.00) Ratio Glucose (70-110) mg/dL POC Glucose (mg/dL) 242 H 241 H 206 H (75-99) mg/dL Lactate Dehydrogenase (120-246) U/L C-Reactive Protein (0.0-0.8) mg/dL 09/14/20 09/14/20 Range/Units 06:44 11:39 BUN (9.0-27.0) mg/dL BUN/Creatinine Ratio (12.00-20.00) Ratio Glucose (70-110) mg/dL POC Glucose (mg/dL) 175 H 177 H (75-99) mg/dL Lactate Dehydrogenase (120-246) U/L C-Reactive Protein (0.0-0.8) mg/dL
[2020-09-14 15:52] LABS: Hemoglobin A1C 10.4 % (4.0-6.0)
[2020-09-14 16:32] LABS: Glucose,Whole Blood 233 mg/dL (75-99)
--- NOTE | 2020-09-14 17:26 | PN ---
PROGRESS NOTE DATE OF SERVICE: 09/14/2020 REASON FOR FOLLOWUP: COVID-19 pneumonia. INTERVAL HISTORY: The patient is currently afebrile. Patient is breathing comfortably. Still remains to be on room air. Denies having any chest pain. He did have a cough and bringing up some sputum. No abdominal pain or diarrhea. PHYSICAL EXAMINATION: Blood pressure 165/87, pulse 76, temp is 97.8. He is 92% on room air. General description is an elderly male up in the chair in no distress. Respiratory system: Unlabored breathing, decreased breath sounds in the base, with no wheeze. Heart S1, S2. Regular rate and rhythm. Abdomen soft, no tenderness. LABS: Sputum has been negative. DIAGNOSTIC IMPRESSION AND PLAN: Patient with acute COVID-19 pneumonia, overall improvement with Remdesivir, Solu- Medrol, zinc and ascorbic acid. The patient can be given a short course of oral prednisone on discharge. No need for systemic antibiotic on discharge. MMODL / IJN: [id number] / SKINNY
[2020-09-14 20:17] LABS: Glucose,Whole Blood 202 mg/dL (75-99)
[2020-09-14] MEDS: allopurinoL 300 MG TAB PO SCH (20:40)
[2020-09-14] MEDS: METOPROLOL TARTRATE 50 MG TAB PO SCH (20:40)
[2020-09-14] MEDS: amLODIPine 10 MG TAB PO SCH (20:40)
[2020-09-14 22:29] VITALS: RESP 16
[2020-09-15] MEDS: HYDROcodone/APAP 10-325MG 1 EACH TAB PO PRN ×2 (00:26→08:31)
[2020-09-15] MEDS: ZOLPIDEM 10 MG TAB PO PRN (00:26)
[2020-09-15] MEDS: CYCLOBENZAPRINE 5 MG TAB PO PRN ×2 (00:26→08:31)
[2020-09-15] MEDS: PIPERACILLIN-TAZOBACTAM 3.375 GM in SODIUM CHLORIDE 0.9% 100 ML IVPB SCH ×2 (00:27→08:33)
[2020-09-15 01:55] LABS: Glucose,Whole Blood 280 mg/dL (75-99)
[2020-09-15 07:29] LABS: Glucose,Whole Blood 232 mg/dL (75-99)
[2020-09-15] MEDS: LOSARTAN 50 MG TAB PO SCH (08:30)
[2020-09-15] MEDS: CITALOPRAM HYDROBROMIDE 20 MG TAB PO SCH (08:30)
[2020-09-15] MEDS: ZINC SULFATE 220 MG CAP PO SCH (08:30)
[2020-09-15] MEDS: hydrALAZINE HCL 50 MG TAB PO SCH (08:31)
[2020-09-15] MEDS: FUROSEMIDE 10 MG TAB PO SCH (08:31)
[2020-09-15] MEDS: ASCORBIC ACID 500 MG TAB PO SCH (08:31)
[2020-09-15] MEDS: DOXAZOSIN 4 MG TAB PO SCH (08:31)
[2020-09-15] MEDS: metFORMIN 500 MG TAB PO SCH (08:31)
[2020-09-15] MEDS: CHOLECALCIFEROL 25 MCG (1000 IU) TABLET PO SCH (08:31)
[2020-09-15] MEDS: GABAPENTIN 300 MG CAP PO SCH (08:31)
[2020-09-15] MEDS: INSULIN DETEMIR (LEVEMIR) 100 UNIT/ML SYR SQ SCH (08:32)
[2020-09-15] MEDS: HEPARIN SODIUM,PORCINE/PF 5,000 UNIT/0.5 ML SYRINGE SQ SCH (08:32)
[2020-09-15] MEDS: PANTOPRAZOLE 40 MG TABLET PO SCH (08:32)
[2020-09-15] MEDS: INSULIN ASPART (NovoLOG) 100 UNIT/ML VIAL SQ SCH ×2 (08:32)
[2020-09-15] MEDS: SODIUM CHLORIDE 0.9% 1,000 ML IV SCH (08:33)
[2020-09-15] MEDS: ALBUTEROL HFA INHALER INHALATION SCH (08:45)
[2020-09-15] MEDS ORDERED: predniSONE 20 MG TAB PO SCH (09:00)
[2020-09-15] MEDS ORDERED: FUROSEMIDE 20 MG TAB PO SCH (09:00)
[2020-09-15] MEDS ORDERED: SPIRONOLACTONE 25 MG TAB PO SCH (09:00)
[2020-09-15 10:32] VITALS: BP 133/76; PULSE 68; TEMP 98.1
[2020-09-15 11:58] LABS: Glucose,Whole Blood 178 mg/dL (75-99)
--- NOTE | 2020-09-15 13:36 | P.PN ---
Progress Note - Text Progress Note Date: 09/15/20 REASON FOR FOLLOWUP: COVID-19 pneumonia. INTERVAL HISTORY: The patient remains to be afebrile. Patient is breathing comfortably on room air. Denies having any chest pain. He did have a cough and bringing up some clear sputum. No abdominal pain or diarrhea. PHYSICAL EXAMINATION: Blood pressure 160/80, pulse 70, temp is 97.8. He is 92% on room air. General description is an elderly male up in the chair in no distress. Respiratory system: Unlabored breathing, decreased breath sounds in the base, with no wheeze. Heart S1, S2. Regular rate and rhythm. Abdomen soft, no tenderness. LABS: no new labs today DIAGNOSTIC IMPRESSION AND PLAN: Patient with acute COVID-19 pneumonia, pt clinically improved with Remdesivir, Solu- Medrol, zinc and ascorbic acid. short course of oral prednisone on discharge. and close out patient follow up
== END 2020-09-15 12:23 | DRG 177 ==
LOC: EC 09:19 → 4SSUR 12:58
PROVIDERS: ADMIT Family Medicine; ATTEND Family Medicine
PROC: 3E0333Z Introduction of Anti-inflammatory into Peripheral Vein, Percutaneous Approach (ICD-10-PCS; 2020-09-08)
PROC: XW033E5 Introduction of Remdesivir Anti-infective into Peripheral Vein, Percutaneous Approach, New Technology Group 5 (ICD-10-PCS; principal; 2020-09-09)
DX: U07.1 COVID-19 (principal); J12.82 Pneumonia due to coronavirus disease 2019; J96.01 Acute respiratory failure with hypoxia; R04.2 Hemoptysis; F33.9 Major depressive disorder, recurrent, unspecified; Z68.41 Body mass index [BMI] 40.0-44.9, adult; J45.20 Mild intermittent asthma, uncomplicated; E11.41 Type 2 diabetes mellitus with diabetic mononeuropathy; G57.93 Unspecified mononeuropathy of bilateral lower limbs; I10 Essential (primary) hypertension; N40.0 Benign prostatic hyperplasia without lower urinary tract symptoms; M1A.9XX0 Chronic gout, unspecified, without tophus (tophi); E78.5 Hyperlipidemia, unspecified; M54.5 Low back pain; E11.65 Type 2 diabetes mellitus with hyperglycemia; T38.0X5A Adverse effect of glucocorticoids and synthetic analogues, initial encounter; Z79.4 Long term (current) use of insulin; E66.01 Morbid (severe) obesity due to excess calories; I11.9 Hypertensive heart disease without heart failure; Z82.49 Family history of ischemic heart disease and other diseases of the circulatory system; Z83.3 Family history of diabetes mellitus; Z81.8 Family history of other mental and behavioral disorders; Z88.1 Allergy status to other antibiotic agents
CPT/HCPCS: 36415; 71045; 71275; 80048; 80053; 80076; 82728; 83036; 83615; 84145; 84484; 85025; 85379; 85610; 85652; 85730; 86140; 86769; 87070; 87205; 93005; 94640; 94760; 99285